=== PATIENT | male | born 1970 | race Caucasian/White ===

== ENCOUNTER 2024-08-26 21:05 | Emergency (ER) | payer MEDICAID, SELFPAY ==
--- NOTE | 2024-08-26 21:08 | ECG_ITS ---
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 Measurements Intervals [place] Rate: 78 P: 62 WV: 135 QRS: 45 QRSD: 86 T: 63 QT: 365 QTc: 418 Interpretive Statements SINUS RHYTHM No previous ECG available for comparison Electronically Signed On 08-28-2024 18:03:31 ELECTRICAL TECH/PROJECT MANAGER by Bert Posey M.D. [email or web address]
[2024-08-26 21:11] VITALS: BP 118/76; PULSE 83; RESP 18; TEMP 36.9; O2SAT 100; BMI 23.5
--- NOTE | 2024-08-26 21:30 | XRR_ITS ---
PROCEDURE INFORMATION: Exam: XR Chest Exam date and time: 08/26/2024 9:32 PM Age: 54 years old Clinical indication: Pain; Chest pressure; Additional info: Chest pain TECHNIQUE: Imaging protocol: Radiologic exam of the chest. Views: 1 view. COMPARISON: No relevant prior studies available. FINDINGS: Lungs: Unremarkable. No consolidation. Pleural spaces: Unremarkable. No pleural effusion. No pneumothorax. Heart/Mediastinum: Unremarkable. No cardiomegaly. Bones/joints: Unremarkable. XR/XR chest 1V portable [id number] IMPRESSION: No acute findings.
--- NOTE | 2024-08-26 21:31 | ED_ITS ---
HPI - Chest Pain 2 General: Chief Complaint: Chest Pain Stated Complaint: Chest Pain N/V Time Seen by Provider: 08/26/24 21:26 History of Present Illness: Patient presents to the ER with complaints of intermittent chest pain that started yesterday. This is in his left chest. It did not radiate. Did cause nausea and vomiting but no shortness of breath or diaphoresis. Patient said he had a heart attack 4 to 5 years ago [facility] but they did not perform any intervention. Patient is only on blood pressure medicine currently. Patient states he has multiple abdominal hernias and a hiatal hernia and is going to see somebody in [place] to have them repaired in the short-term future. Patient is not having any chest pain at present. Related Data Previous Rx's ?Medication ?Instructions ?Recorded metoclopramide HCl 10 mg tablet 10 mg PO Q6H PRN nause a and 08/27/24 (Reglan) vomiting #14 tabs Allergies Allergy/AdvReac Type Severity Reaction Status Date / Time Latex, Natural Rubber Allergy ALGY-Rash Verified 08/26/24 21:16 Review of Systems 2 General: Reports: 10 or more systems reviewed and unremarkable except in HPI and below Physical Exam 2 Const: COMMON NORMALS: no acute distress, average body habitus, patient oriented x3, no limitations, healthy appearing, alert and well nourished HENMT: COMMON NORMALS: normocephalic, atraumatic, hearing grossly normal bilaterally, external ears normal, Normal external nose present, moist oral mucous membranes and oropharynx normal HEAD & SCALP: normocephalic and atraumatic NOSE: Normal external nose present EXTERNAL EAR: Yes external ears normal Neck/C-Spine: COMMON NORMALS: full ROM, no lymphadenopathy, supple, no meningeal signs, no JVD and Thyroid normal THYROID: Thyroid normal Chest: COMMONS NORMALS: normal inspection of the chest and normal palpation of entire chest wall Resp: COMMON NORMALS: normal respiratory effort, No retractions, No use of accessory muscles and clear to auscultation bilaterally AUSCULTATION: clear to auscultation bilaterally Cardio: COMMON NORMALS: no JVD, regular rate, regular rhythm, S1 normal heart sound present, S2 normal heart sound present, No gallops present (Cardio), No clicks present (Cardio), No murmurs present (Cardio) and No rub (Cardio) R ATE: regular rate RHYTHM: regular rhythm HEART SOUNDS: S1 normal heart sound present and S2 normal heart sound present GI: COMMON NORMALS: Normal to inspection, nondistended, normoactive bowel sounds present, Soft to palpation, non-tender, No hepatosplenomegaly present and no masses PALPATION: Yes Soft to palpation and Yes No hepatosplenomegaly present Neuro: COMMON NORMALS: patient oriented x3 SENSORIUM/ORIENTATION: Yes alert MENINGEAL SIGNS: Yes no meningeal signs Course 2 Vital Signs: Vital signs: Vital Signs Temperature 98.4 F 08/26/24 21:11 Pulse Rate 71 08/26/24 23:00 Respiratory Rate 17 08/26/24 23:00 Blood Pressure 102/46 08/26/24 23:00 Pulse Oximetry 96 08/26/24 23:00 Oxygen Delivery Me thod Room Air 08/26/24 22:30 MDM - Chest Pain Medical Decision Making Lab work was reviewed as well as chest x-ray, serial troponins serial EKGs, all of which was essentially benign except mild elevation of white blood cell count 17.2 hemoglobin 10.3, patient was given Toradol, Zofran, and Reglan, patient said his pain was much improved as well as his nausea. Patient will be discharged home. Medical Records I reviewed the patient's medical records. Lab Data I reviewed the patient's lab results. 08/26/24 21:40 08/26/24 21:40 Radiology Impressions Chest X-Ray 08/26/24 21:30 IMPRESSION: No acute findings. Laboratory Results WBC 17.24 10^3/uL (3.29-11.43) H 08/26/24 21:40 RBC 5.59 10^6/uL (3.85-5.65) 08/26/24 21:40 Hgb 10.30 g/dL (11.27-16.99) L 08/26/24 21:40 Hct 35.3 % (37-53) L 08/26/24 21:40 MCV 63.1 fl (82-101) L 08/26/24 21:40 MCH 18.4 pg (27-33) L 08/26/24 21:40 MCHC 29.2 g/dL (30-55) L 08/26/24 21:40 RDW 22.0 % (12.1-15.1) H 08/26/24 21:40 Plt Count 629 10^3/cmm (157-399) H 08/26/24 21:40 MPV 8.4 fL (7.4-10.4) 08/26/24 21:40 Neut % (Auto) 67.3 % 08/26/24 21:40 Lymph % (Auto) 21.0 % 08/26/24 21:40 [place] % (Auto) 9.6 % 08/26/24 21:40 Eos % (Auto) 0.9 % 08/26/24 21:40 Baso % (Auto) 0.6 % 08/26/24 21:40 Neut # (Auto) 11.59 10^3/uL (1.8-7.7) H 08/26/24 21:40 Lymph # (Auto) 3.6 10^3/uL (0.8-4.8) 08/26/24 21:40 [place] # (Auto) 1.7 10^3/uL (0.2-0.9) H 08/26/24 21:40 Eos # (Auto) 0.2 10^3/uL (0.0-0.8) 08/26/24 21:40 Baso # (Auto) 0.1 10^3/uL (0.0-0.1) 08/26/24 21:40 Nucleated RBC % (auto) 0.1 % 08/26/24 21:40 Nucleated RBCs # 0.0 /100WBC 08/26/24 21:40 Sodium 136 mmol/L (136-145) 08/26/24 21:40 Potassium 4.5 mmol/L (3.5-5.1) 08/26/24 21:40 Chloride 102 mmol/L (98-107) 08/26/24 21:40 Carbon Dioxide 22 mmol/L (22-29) 08/26/24 21:40 Anion Gap 16.5 (5-19) 08/26/24 21:40 BUN 20 mg/dL (6-20) 08/26/24 21:40 Creatinine 1.3 mg/dL (0.7-1.2) H 08/26/24 21:40 GFR Calculation 58.0 mL/min (90-130) L 08/26/24 21:40 Glucose 107 mg/dL (65-115) 08/26/24 21:40 Calculated Osmolality 285 mOsm/kg (285-295) 08/26/24 21:40 Calcium 9.6 mg/dL (8.5-10.5) 08/26/24 21:40 Total Bilirubin 0.4 mg/dL (0.15-1.2) 08/26/24 21:40 AST 22 U/L (0-40) 08/26/24 21:40 ALT 15 U/L (0-41) 08/26/24 21:40 Alkaline Phosphatase 151 U/L (40-130) H 08/26/24 21:40 Troponin T Baseline 9 ng/L (0-15) 08/26/24 21:40 Troponin T 120 Minute 9.70 ng/L (0-15) 08/26/24 23:26 Delta Troponin T 0.70 ABS# (0-10) 08/26/24 23:26 Total Protein 7.3 g/dL (6.6-8.7) 08/26/24 21:40 Albumin 4.4 g/dL (3.5-5.2) 08/26/24 21:40 Globulin 2.9 g/dL (1.3-4.6) 08/26/24 21:40 All radiology interpretation(s) finalized by discharge Discharge Plan Discharge Patient Disposition: Home Clinical Impression: Chest pain Qualifiers: Chest pain type: unspecified Qualified Code(s): R07.9 - Chest pain, unspecified Nausea and vomiting Qualifiers: Vomiting type: unspecified Qualified Code(s): R11.2 - Nausea with vomiting, unspecified Condition: Stable Prescriptions: New metoclopramide HCl [Reglan] 10 mg tablet 10 mg PO Q6H PRN (Reason: nausea and vomiting) Qty: 14 0RF Discharge Orders: Discharge ED (Routine); Ordered 08/27/24 Ordered By: Luis Carlos Estrada Patient Instructions: Chest Pain (DC), Acute Nausea and Vomiting (ED) Activity Restrictions/Additional Instructions: Thank you for choosing [facility] for your healthcare needs today. Please realize that you were seen in the emergency department and that we are providing you with an emergency medical screening exam and this may not be a complete and all exclusive of all testing and/or medical workup we may need to determine your element or severity of your illness. It is very important that you follow-up as instructed with your primary care provider or specialist for the additional evaluation and to discuss your medical treatment plan. You may return to the emergency department should you have concerns or if your condition changes or worsens in any way. Print Language: Botswanan Coding Level of Care Code ED Business Services Specialist Sales for 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
[2024-08-26] MEDS: ondansetron 4 MG Tablet PO (21:44)
[2024-08-26] MEDS: ketorolac 60 mg/2 mL INJ IM (21:44)
[2024-08-26 21:48] LABS: Basophils # 0.1 10^3/uL (0.0-0.1); Basophils % 0.6 %; Eosinophils # 0.2 10^3/uL (0.0-0.8); Eosinophils % 0.9 %; Hematocrit 35.3 % (37-53); Lymphocytes # 3.6 10^3/uL (0.8-4.8); Mean Corpuscular HGB Conc 29.2 g/dL (30-55); Mean Corpuscular Hemoglobin 18.4 pg (27-33); Mean Corpuscular Volume 63.1 fl (82-101); Mean Platelet Volume 8.4 fL (7.4-10.4); Monocytes # 1.7 10^3/uL (0.2-0.9); Monocytes % 9.6 %; Neutrophils # 11.59 10^3/uL (1.8-7.7); Neutrophils % 67.3 %; Nucleated Red Blood Cells % 0.1 %; Platelet Count 629 10^3/cmm (157-399); Red Blood Count 5.59 10^6/uL (3.85-5.65); White Blood Count 17.24 10^3/uL (3.29-11.43)
[2024-08-26 22:00] VITALS: BP 129/81; PULSE 76; RESP 22; O2SAT 96
[2024-08-26 22:12] LABS: Alanine Aminotransferase 15 U/L (0-41); Albumin Level 4.4 g/dL (3.5-5.2); Alkaline Phosphatase 151 U/L (40-130); Aspartate Amino Transferase 22 U/L (0-40); Blood Urea Nitrogen 20 mg/dL (6-20); Calcium 9.6 mg/dL (8.5-10.5); Carbon Dioxide 22 mmol/L (22-29); Chloride 102 mmol/L (98-107); Creatinine Clr Calc Pharmacy 62.8745; Globulin 2.9 g/dL (1.3-4.6); Glucose 107 mg/dL (65-115); Osmolality Calculated 285 mOsm/kg (285-295); Sodium 136 mmol/L (136-145); Total Bilirubin 0.4 mg/dL (0.15-1.2); Total Protein 7.3 g/dL (6.6-8.7)
[2024-08-26 22:13] LABS: Anion Gap 16.5 (5-19); Potassium 4.5 mmol/L (3.5-5.1)
[2024-08-26 22:28] LABS: Troponin(5th) Baseline 9 ng/L (0-15)
[2024-08-26 22:30] VITALS: BP 107/54; PULSE 72; RESP 16; O2SAT 95
[2024-08-26 23:00] VITALS: BP 102/46; PULSE 71; RESP 17; O2SAT 96
[2024-08-26 23:30] VITALS: BP 97/49; PULSE 62; RESP 15; O2SAT 97
--- NOTE | 2024-08-26 23:30 | ECG_ITS ---
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 Measurements Intervals [place] Rate: 64 P: -4 VT: 134 QRS: 35 QRSD: 86 T: 16 QT: 412 QTc: 426 Interpretive Statements SINUS RHYTHM VOLTAGE CRITERIA FOR LVH [MEETS CRITERIA IN ONE OF: R(aVL), S(V1), R(V5), R(V5/V6)+S(V1)] Compared to ECG 08/26/2024 21:15:18 Left ventricular hypertrophy now present Electronically Signed On 08-28-2024 19:35:20 ELECTRONICS SPECIALIST by Bert Posey M.D. [id number] [id number]
[2024-08-26] MEDS: metoclopramide 5 mg/mL SDV 2 mL 10 MG IVP (23:37)
[2024-08-27] VITALS: BP 113/60; PULSE 62; O2SAT 97
[2024-08-27 00:25] VITALS: BP 121/64; PULSE 65; RESP 17; O2SAT 96
== END 2024-08-27 00:26 | disposition home or self-care (01) ==
PROVIDERS: Emergency Provider Emergency Medicine
DX: R07.9 Chest pain, unspecified (principal); R11.2 Nausea with vomiting, unspecified
CPT/HCPCS: 36415; 71045; 80053; 84484; 85025; 93005; 96372; 96374; 99285; J1885; J2765; Q0162

== ENCOUNTER 2024-11-26 22:38 | Emergency (ER) | payer MEDICAID, SELFPAY ==
[2024-11-26 22:40] VITALS: BP 170/97; PULSE 95; RESP 18; TEMP 36.7; O2SAT 100; BMI 21.2
[2024-11-27 01:05] LABS: Basophils # 0.2 10^3/uL (0.0-0.1); Basophils % 0.8 %; Eosinophils % 0.1 %; Hematocrit 35.7 % (37-53); Lymphocytes # 5.2 10^3/uL (0.8-4.8); Lymphocytes % 28.8 %; Mean Corpuscular HGB Conc 30.5 g/dL (30-55); Mean Corpuscular Hemoglobin 22.7 pg (27-33); Mean Corpuscular Volume 74.2 fl (82-101); Mean Platelet Volume 8.8 fL (7.4-10.4); Monocytes # 1.9 10^3/uL (0.2-0.9); Monocytes % 10.5 %; Neutrophils # 10.63 10^3/uL (1.8-7.7); Nucleated Red Blood Cells % 0 %; Platelet Count 595 10^3/cmm (157-399); Red Blood Count 4.81 10^6/uL (3.85-5.65); Red Cell Distribution Width 20.3 % (12.1-15.1); White Blood Count 18.01 10^3/uL (3.29-11.43)
[2024-11-27 01:20] LABS: Add RBC Morph Yes; Slide Review Slide Review Perform
[2024-11-27 01:21] LABS: Anion Gap 13.6 (5-19); Anisocytosis 2+; Blood Urea Nitrogen 10 mg/dL (6-20); Calcium 9.1 mg/dL (8.5-10.5); Carbon Dioxide 28 mmol/L (22-29); Chloride 100 mmol/L (98-107); Glomerular Filtration Rate 70.3 mL/min (90-130); Glucose 108 mg/dL (65-115); Lipase 55 U/L (13-60); Microcytosis 2+; Osmolality Calculated 286 mOsm/kg (285-295); Poikilocytosis 2+; Potassium 3.6 mmol/L (3.5-5.1); RBC Morph Comp No; Sodium 138 mmol/L (136-145)
[2024-11-27 01:22] LABS: Hypochromasia 1+; Pathology Refferal No
--- NOTE | 2024-11-27 01:33 | CTR_ITS ---
PROCEDURE INFORMATION: Exam: CT Abdomen And Pelvis With Contrast Exam date and time: 11/27/2024 2:03 AM Age: 54 years old Clinical indication: Nausea and vomiting; Abdominal pain; Prior surgery; Surgery date: 6+ months; Surgery type: Bowel resection; C/O epigastric pain with n/v. TECHNIQUE: Imaging protocol: Computed tomography of the abdomen and pelvis with contrast. Radiation optimization: All CT scans at this facility use at least one of these dose optimization techniques: automated exposure control; mA and/or kV adjustment per patient size (includes targeted exams where dose is matched to clinical indication); or iterative reconstruction. Contrast material: OMNI 350; Contrast volume: 100 ml; Contrast route: INTRAVENOUS (IV); COMPARISON: CR XR chest 1V portable [id number] 08/26/2024 9:32 PM RADIATION DOSE METRICS: Total DLP (mGy-cm): 338.93 FINDINGS: Lungs: Visualized lung bases are clear. Liver: The liver is unremarkable. Gallbladder and biliary ducts: Gallbladder is poorly visualized and may be absent. No biliary ductal dilation. Pancreas: The pancreas is unremarkable. Spleen: Spleen appears absent. A 2.5 cm splenule is present posterior to the stomach, suggestive of prior splenosis. Adrenal glands: The adrenal glands are unremarkable. Kidneys and ureters: Left kidney is absent. Right kidney demonstrates mild right hydronephrosis and hydroureter. No evidence of renal stones. Stomach and bowel: Mild colonic stool burden. No evidence of bowel obstruction. Postsurgical changes of bowel. Appendix: No evidence of acute appendicitis. Intraperitoneal space: No extraluminal free air. Vasculature: Mild scattered calcific atheromatous disease of the abdominal aorta and its major branches. No abdominal aortic aneurysm. Lymph nodes: No distinct pathologically enlarged lymphadenopathy. Urinary bladder: Questionable mild diffuse bladder wall thickening. Reproductive: Visualized reproductive structures are within normal limits. Bones/joints: Chronic appearing grade 1 anterolisthesis of L5 on S1. No distinct acute osseous fractures. Soft tissues: Visualized superficial soft tissues are within normal limits. CT/CT abdomen pelvis w con* [id number] IMPRESSION: 1. Questionable mild diffuse bladder wall thickening. This may be incidental or can be seen with mild cystitis. 2. Left kidney is absent. 3. Right kidney demonstrates mild right hydronephrosis and hydroureter. No evidence of renal stones. 4. Mild colonic stool burden.
--- NOTE | 2024-11-27 01:34 | ED_ITS ---
HPI - Abdominal Pain 2 General: Chief Complaint: Abdominal Pain Stated Complaint: n/v passing blood, headache no energy Time Seen by Provider: 11/27/24 01:15 History of Present Illness: Patient comes in with blood in his stool, vomiting, and abdominal pain. States for the past 7 days he has not been able to keep much down secondary to vomiting. 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 States he also has a headache today and generalized abdominal pain worse in epigastric region. States he is seeing bright red blood when he wipes over the last few days as well. States he has a history of ulcers. On physical exam his abdomen is soft, nontender. Will check labs, CT abdomen pelvis with IV contrast, treat pain with 15 mg of IV Toradol, treat nausea with 10 mg of IV Reglan, give IV fluids, and reassess. Associated Symptoms: Reports hematochezia, nausea and vomiting; Denies fever(s) Related Data Previous Rx's ?Medication ?Instructions ?Recorded metoclopramide HCl 10 mg tablet 10 mg PO Q6H PRN nause a and 08/27/24 (Reglan) vomiting #14 tabs ondansetron 4 mg disintegrating 4 mg PO Q8H PRN nausea and 11/27/24 tablet vomiting 4 days #14 tabs Allergies Allergy/AdvReac Type Severity Reaction Status Date / Time Latex, Natural Rubber Allergy ALGY-Rash Verified 08/26/24 21:16 Review of Systems 2 Const: Denies: fever(s) Eyes: Denies: change in vision ENMT: Denies: throat pain Card: Denies: chest pain Resp: Denies: dyspnea GI: Reports: abdominal pain, nausea, vomiting and hematochezia Neuro: Reports: headache(s) Physical Exam 2 Const: COMMON NORMALS: no acute distress, patient oriented x3, healthy appearing and alert HENMT: COMMON NORMALS: normocephalic and atraumatic HEAD & SCALP: n ormocephalic and atraumatic Neck/C-Spine: COMMON NORMALS: full ROM and supple Resp: COMMON NORMALS: normal respiratory effort, No retractions and No use of accessory muscles Cardio: COMMON NORMALS: regular rate and regular rhythm RATE: regular rate RHYTHM: regular rhythm GI: COMMON NORMALS: Normal to inspection, nondistended, normoactive bowel sounds present, Soft to palpation and non-tender PALPATION: Yes Soft to palpation Extremity: COMMON NORMALS: normal to inspection and full ROM Neuro: COMMON NORMALS: patient oriented x3 SENSORIUM/ORIENTATION: Yes alert Skin: COMMON NORMALS: no rashes or lesions noted and no wounds GENERAL SKIN EXAM: no rashes or lesions noted Course 2 Vital Signs: Vital signs: Vital Signs Temperature 98.1 F 11/26/24 22:40 Pulse Rate 83 11/27/24 02:23 Respiratory Rate 18 11/26/24 22:40 Blood Pressure 132/78 11/27/24 02:23 Pulse Oximetry 100 11/27/24 02:23 Oxygen Delivery Me thod Room Air 11/26/24 22:40 MDM - Abdominal Pain Medical Decision Making On reassessment I talked to the patient about his test results. His white blood cell count is elevated at 18, this is consistent with his previous lab work. His hemoglobin is 10.9 which is also consistent with his previous lab work. His CT scan shows no acute intra-abdominal pathology. He has not thrown up since he has been here in the back. He states that his headache is improving and that he has nausea is improving. Will place him on Zofran at home, and discharged with precautions to return for worsening or changing symptoms. Lab Data 11/27/24 00:49 11/27/24 00:49 Labs/Radiology: Radiology Impressions Abdomen/Pelvis CT 11/27/24 01:33 IMPRESSION: 1. Questionable mild diffuse bladder wall thickening. This may be incidental or can be seen with mild cystitis. 2. Left kidney is absent. 3. Right kidney demonstrates mild right hydronephrosis and hydroureter. No evidence of renal stones. 4. Mild colonic stool burden. Laboratory Results WBC 18.01 10^3/uL (3.29-11.43) H 11/27/24 00:49 RBC 4.81 10^6/uL (3.85-5.65) 11/27/24 00:49 Hgb 10.90 g/dL (11.27-16.99) L 11/27/24 00:49 Hct 35.7 % (37-53) L 11/27/24 00:49 MCV 74.2 fl (82-101) L 11/27/24 00:49 MCH 22.7 pg (27-33) L 11/27/24 00:49 MCHC 30.5 g/dL (30-55) 11/27/24 00:49 RDW 20.3 % (12.1-15.1) H 11/27/24 00:49 Plt Count 595 10^3/cmm (157-399) H 11/27/24 00:49 MPV 8.8 fL (7.4-10.4) 11/27/24 00:49 Neut % (Auto) 59.0 % 11/27/24 00:49 Lymph % (Auto) 28.8 % 11/27/24 00:49 [place] % (Auto) 10.5 % 11/27/24 00:49 Eos % (Auto) 0.1 % 11/27/24 00:49 Baso % (Auto) 0.8 % 11/27/24 00:49 Neut # (Auto) 10.63 10^3/uL (1.8-7.7) H 11/27/24 00:49 Lymph # (Auto) 5.2 10^3/uL (0.8-4.8) H 11/27/24 00:49 [place] # (Auto) 1.9 10^3/uL (0.2-0.9) H 11/27/24 00:49 Eos # (Auto) 0.0 10^3/uL (0.0-0.8) 11/27/24 00:49 Baso # (Auto) 0.2 10^3/uL (0.0-0.1) H 11/27/24 00:49 Nucleated RBC % (auto) 0 % 11/27/24 00:49 Nucleated RBCs # 0.0 /100WBC 11/27/24 00:49 Pathologist Review No 11/27/24 00:49 Hypochromasia 1+ H 11/27/24 00:49 Poikilocytosis 2+ H 11/27/24 00:49 Anisocytosis 2+ H 11/27/24 00:49 Microcytosis 2+ H 11/27/24 00:49 Sodium 138 mmol/L (136-145) 11/27/24 00:49 Potassium 3.6 mmol/L (3.5-5.1) 11/27/24 00:49 Chloride 100 mmol/L (98-107) 11/27/24 00:49 Carbon Dioxide 28 mmol/L (22-29) 11/27/24 00:49 Anion Gap 13.6 (5-19) 11/27/24 00:49 BUN 10 mg/dL (6-20) 11/27/24 00:49 Creatinine 1.1 mg/dL (0.7-1.2) 11/27/24 00:49 GFR Calculation 70.3 mL/min (90-130) L 11/27/24 00:49 Glucose 108 mg/dL (65-115) 11/27/24 00:49 Calculated Osmolality 286 mOsm/kg (285-295) 11/27/24 00:49 Calcium 9.1 mg/dL (8.5-10.5) 11/27/24 00:49 Lipase 55 U/L (13-60) 11/27/24 00:49 All radiology interpretation(s) finalized by discharge Discharge Plan Discharge Patient Disposition: Home Clinical Impression: Vomiting, Abdominal pain Condition: Stable Prescriptions: New ondansetron 4 mg tablet,disintegrating 4 mg PO Q8H PRN (Reason: nausea and vomiting) 4 Days Qty: 14 0RF No Action metoclopramide HCl [Reglan] 10 mg tablet 10 mg PO Q6H PRN (Reason: nausea and vomiting) Qty: 14 0RF Discharge Orders: Discharge ED (Routine); Ordered 11/27/24 Ordered By: John Green Patient Instructions: Abdominal Pain (ED), Vomiting - Adult Print Language: Mohawk Coding Level of Care Code ED Subcontract Administrator for 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
[2024-11-27] MEDS: metoclopramide 5 mg/mL SDV 2 mL 10 MG IVP (01:48)
[2024-11-27] MEDS: ketorolac 30 mg/mL INJ 15 MG IVP (01:48)
[2024-11-27] MEDS: sodium chloride 0.9% 1,000 ML 999 ML IV (01:48)
[2024-11-27] MEDS: iohexol 350 mg/mL 500 mL Btl (per mL) IV (02:04)
[2024-11-27 02:23] VITALS: BP 132/78; PULSE 83; O2SAT 100
[2024-11-27] MEDS: ondansetron 2 mg/ML SDV 2 mL 4 MG IVP (03:14)
[2024-11-27 03:23] VITALS: BP 124/74; PULSE 82; O2SAT 100
== END 2024-11-27 03:25 | disposition home or self-care (01) ==
PROVIDERS: Emergency Provider Emergency Medicine
DX: R11.10 Vomiting, unspecified (principal); R10.9 Unspecified abdominal pain
CPT/HCPCS: 36415; 74177; 80048; 83690; 85025; 96374; 96375; 99285; J1885; J2405; J2765; J7030

== ENCOUNTER 2025-04-14 13:07 | Emergency (ER) | payer SELFPAY ==
[2025-04-14 13:09] VITALS: BP 165/99; PULSE 78; RESP 18; TEMP 36.6; O2SAT 100
--- NOTE | 2025-04-14 13:26 | XR_ITS ---
WS: [email or web address] Left arm and humerus, 2 views, AP and lateral views, 04/14/2025 Clinical Data: injury, biceps tear Comparison: None. Findings: No fractures or dislocations are seen. The shaft of the humerus is intact. There are 2 radiopaque pellets in the subcutaneous tissue of the left chest. XR/[place] [id number] Impression: Negative left arm and humerus.
--- NOTE | 2025-04-14 13:27 | W.ED.EXTPRO ---
HPI - Extremity Problem General: Chief complaint: Extremity Injury, Upper Stated complaint: L bicep lump and discolored Time Seen by Provider: 04/14/25 13:16 History of Present Illness: Patient is a pleasant 55-year-old male that comes today with injury 2 weeks ago to left upper arm. He states he was reaching out to catch himself, fell, and noted a bulge in his mid to proximal humerus. He states he has ongoing bruising to this area. 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 He has not seen a physician for this before this time. He complains of localized pain in his left proximal to mid arm. Associated symptoms: Deny chest pain or fever(s) Related Data Previous Rx's ?Medication ?Instructions ?Recorded ketorolac 10 mg tablet 10 mg PO Q8H PRN pain 5 days #14 04/14/25 tabs methocarbamol 750 mg tablet 750 mg PO Q8H PRN muscle spasm #30 04/14/25 tabs Allergies Allergy/AdvReac Type Severity Reaction Status Date / Time adhesive Allergy ALGY-Rash Verified 04/14/25 13:50 Latex, Natural Rubber Allergy ALGY-Rash Verified 08/26/24 21:16 Review of Systems Const: Denies: fever(s) Eyes: Denies: change in vision ENMT: Denies: throat pain Card: Denies: chest pain or palpitations Resp: Denies: dyspnea GI: Denies: abdominal pain, nausea or vomiting Musc: Reports: extremity pain and extremity swelling; Denies: neck pain, back pain, joint pain or joint swelling Neuro: Denies: headache(s), numbness in extremities or sensory changes Physical Exam Const: COMMON NORMALS: no acute distress, average body habitus, patient oriented x3 and no limitations HENMT: COMMON NORMALS: normocephalic, atraumatic and hearing grossly normal bilaterally HEAD & SCALP: normocephalic and atraumatic Neck/C-Spine: COMMON NORMALS: full ROM, no lymphadenopathy (left axilla negative) and no JVD Lymph: LYMPHATIC: no lymphadenopathy noted Resp: COMMON NORMALS: normal respiratory effort, No retractions and clear to auscultation bilaterally AUSCULTATION: clear to auscultation bilaterally Cardio: COMMON NORMALS: no JVD, regular rate, regular rhythm, S1 normal heart sound present, S2 normal heart sound present, No gallops present (Cardio), No clicks present (Cardio), No murmurs present (Cardio), No rub (Cardio) and Peripheral pulses 2+ throughout RATE: regular rate RHYTHM: regular rhythm HEART SOUNDS: S1 normal heart sound present and S2 normal heart sound present PERIPHERAL PULSES: Peripheral pulses 2+ throughout GI: COMMON NORMALS: Normal to inspection, nondistended, normoactive bowel sounds present and Soft to palpation PALPATION: Yes Soft to palpation : COMMON NORMALS: Yes no CVA tenderness BLADDER/KIDNEY EXAM: Yes no CVA tenderness Back/Pelvis: COMMON NORMALS: no CVA tenderness Extremity: NARRATIVE EXTREMITY EXAM: Mid to proximal medial anterior fullness/bulge without induration with light blue and yellow ecchymosis anteriorly Neuro: COMMON NORMALS: patient oriented x3 Psych: COMMON NORMALS: mental status grossly normal and Normal thought process present THOUGHT PROCESS: Normal thought process present Course Vital Signs: Vital signs: Vital Signs Temperature 97.9 F 04/14/25 13:09 Pulse Rate 78 04/14/25 13:09 Respiratory Rate 18 04/14/25 13:09 Blood Pressure 165/99 04/14/25 13:09 Pulse Oximetry 100 04/14/25 13:09 Oxygen Delivery Me thod Room Air 04/14/25 13:09 MDM - Extremity (Nontraumatic) Medical Decision Making Patient is a 55-year-old male, with exploratory laparotomy 6 weeks ago through [place], however local here, and does not have a primary care physician. He was requesting referral to specific orthopedist. This orthopedist is not on-call, and this is a nonemergent issue. Will have case management provide primary care physician for his referral. Injury occurred 2 weeks ago, there are no red flags. Ecchymosis is consistent with 2 weeks ago. Patient states understanding. Medical Records I reviewed the patient's medical records. No records here Lab Data Radiology Impressions Humerus X-Ray 04/14/25 13:26 Impression: Negative left arm and humerus. XR interpretation done by ED provider, pending radiology final review Discharge Plan Discharge Patient Disposition: Home Clinical Impression: Rupture of left proximal biceps tendon Qualifiers: Encounter type: initial encounter Qualified Code(s): S46.212A - Strain of muscle, fascia and tendon of other parts of biceps, left arm, initial encounter Condition: Stable Prescriptions: New ketorolac 10 mg tablet 10 mg PO Q8H PRN (Reason: pain) 5 Days Qty: 14 0RF methocarbamol 750 mg tablet 750 mg PO Q8H PRN (Reason: muscle spasm) Qty: 30 0RF Discharge Orders: Discharge ED (Routine); Ordered 04/14/25 Ordered By: Ansley Rodriguez Discharge Diet: Usual diet Discharge Activity: Limit activity as instructed Patient Instructions: Biceps Tendon Rupture, Patient Portal & Felisha Instructions Activity Restrictions/Additional Instructions: - Do not take ibuprofen with ketorolac that was sent to the pharmacy - Ketorolac, anti-inflammatory pain medication, and methocarbamol/Robaxin, muscle relaxer were sent to your pharmacy. -Ice also helps with pain. -You can place an Hardik wrap on this to help with pain. Do not over tighten. -Case management will call you with primary care physician follow-up. Make sure your numbers updated with registration. You can then be referred to the physician of choice through your primary. - Return to ED if you have an emergency Thank you for choosing [facility] for your healthcare needs today. You have been screened and evaluated and felt safe for discharge. Health conditions do change or evolve sometimes and as such it is important that you follow up with your Primary Doctor to be re checked, 3-5 days is a general good time frame for follow up. You are always welcome to return to the ED for re assessment if your symptoms are worsening or you have new concerns Print Language: Maori Coding Level of Care Code ED Toppiece Chopper for 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
--- OUTSIDE RECORDS SUMMARY | 2025-04-14 13:43 | XMS_ITS | Clinical Summary ---
Author Organization [facility] Address [address] [place] [id number] Care Team Providers Care Treater Helper Name Role Phone Unavailable Primary Care Provider Unavailabl e Allergies Active Allergy Reactions Criticality Noted Date Comments Latex Hives Medium 02/27/2022 bandaids Medications No known medications Active Problems Problem Noted Date Diagnosed Date Acute pancreatitis 11/05/2024 Assessment & Plan (11/05/2024 6:45 PM CDT): Lipase 78 N.p.o. except for ice chips Hypokalemia 11/05/2024 Assessment & Plan (11/05/2024 6:45 PM CDT): Potassium 3.1 Potassium chloride 10 mEq IV piggyback Normal saline 20 mL of potassium per bag 100 cc an hour Recheck potassium in the morning Hyponatremia 11/05/2024 Assessment & Plan (11/05/2024 6:45 PM CDT): Sodium 129 Normal saline 100 cc an hour Recheck labs in the morning Polysubstance abuse 11/05/2024 Assessment & Plan (11/05/2024 6:45 PM CDT): Urine drug screen positive for marijuana and amphetamines Nausea with vomiting 11/05/2024 Assessment & Plan (11/05/2024 6:45 PM CDT): Zofran as needed Elevated white blood cell count 10/18/2024 Anemia 11/11/2022 Idiopathic acute pancreatiti s, unspecified complication status 11/09/2022 H. pylori infection 03/15/2022 Acute blood loss anemia 03/03/2022 Hepatitis C 03/03/2022 Methamphetamine abuse 03/03/2022 Hematemesis 03/02/2022 Hydronephrosis of right kidney 03/02/2022 Duodenal ulcer 03/02/2022 Esophagitis 03/02/2022 Assessment & Plan (11/05/2024 6:45 PM CDT): Admit for observation CT scan shows esophagitis, distal GI consultation Dr. Mata; made by the emergency room for EGD to evaluate esophagitis Protonix 80 mg daily N.p.o. after midnight Substance abuse 02/09/2022 Non-compliant patient 02/09/2022 Constipation 02/09/2022 Abdominal pain 02/09/2022 Chronic insomnia 02/02/2021 MDD (major depressive disord er), recurrent severe, without psychosis 02/02/2021 Suicidal behavior without attempted self-injury 02/01/2021 Tobacco abuse counseling 08/03/2019 Resolved Problems Problem Noted Date Diagnosed Date Resolved Date Recurrent acute pancreatitis 10/18/2024 10/19/2024 JACKLYN (acute kidney injury) 03/02/2022 Epigastric pain 02/09/2022 03/03/2022 Hypertension 02/09/2022 10/19/2024 Immunizations Immunization Administration Dates Next Due Hepatitis B, Adult/Adol 07/14/2020 Social History Tobacco Use Types Packs/Day Years Used Date Smoking Tobacco: Every Day Cigarettes Smokeless Tobacco: Never Tobacco Cessation:Ready to Q uit: Not Asked; Counseling Given: Not Answered Alcohol Use Standard Drinks/Week Comments Not Currently 0 (1 standard drink = 0.6 oz pur e alcohol) [facility] Utilities Answer Date Recorded In the past 12 months has [facility] [employer], oil, or water [employer] threatened to shut off services in your home? No 11/05/2024 Humiliation, Afraid, Rape, and Kick questionnair e Answer Date Recorded Within the last year, have y ou been afraid of your partner or ex-partner? No 11/05/2024 Within the last year, have y ou been humiliated or emotionally abused in other ways by your partner or ex-partner? No Within the last year, have y ou been kicked, hit, slapped, or otherwise physically hurt by your partner or ex-partner? No 11/05/2024 Within the last year, have y ou been raped or forced to have any kind of sexual activity by your partner or ex-partner? No 11/05/2024 Hunger Vital Sign Answer Date Recorded Within the past 12 months, y ou worried that your food would run out before you got the money to buy more. Never true 11/06/19 25 Within the past 12 months, t he food you bought just didn't last and you didn't have money to get more. Never true 11/05/2024 PRAPARE - Transportation Answer Date Re corded In the past 12 months, has l ack of transportation kept you from medical appointments or from getting medications? No 10/21 In the past 12 months, has l ack of transportation kept you from meetings, work, or from getting things needed for daily living? No 11/05/2024 Housing Stability Vital Sign Answer Brandon e Recorded In the last 12 months, was t here a time when you were not able to pay the mortgage or rent on time? No 11/05/2024 In the past 12 months, how m any times have you moved where you were living? 2 11/05/2024 At any time in the past 12 m [facility], were you homeless or living in a senior care (including now)? No 11/05/2024 Alcohol Use Answer Date Recorded Frequency of Alcohol Consumption Not on file 12/06/2023 Average Number of Drinks Not on file 024 Frequency of Binge Drinking Not on file 11/21 Alcohol Use Status Not Currently 12/06/2023 Average alcohol consumption Not on file 11/21 Sex and Gender Information Value Date Recorded Sex Assigned at Not on file Legal Sex Male 10:16 AM CDT Gender Identity Not on file Sexual Orientation Not on file Last Filed Vital Signs Vital Sign Reading Time Taken Comments Blood Pressure 139/100 11/08/2024 11:32 AM CDT Pulse 80 11/08/2024 11:32 AM CDT Temperature 36.3 C (97.4 F) 11/08/2024 11:32 AM CDT Respiratory Rate 18 11/08/2024 11:32 AM CDT Oxygen Saturation 100% 11/08/2024 11:32 AM CDT Inhaled Oxygen Concentration - - Weight 61.7 kg (136 lb) 11/05/2024 7:17 PM CDT Height 167.6 cm (5' 6 ) 11/05/2024 7:17 PM CDT Body Mass Index 21.95 11/05/2024 7:17 PM CDT Plan of Treatment Health Maintenance Due Date Last Done Comments MMR VACCINES (1 of 1 - Standard series) 02/18/1973 YEARLY WELLNESS EXAM 02/18/1975 DEPRESSION SCREENING 1984 ADULT TETANUS 02/18/1991 Pneumococcal Vaccine: Peds t o 50 & At-Risk Patients (1 of 2 - PCV) 02/18/1991 Colon Cancer Screening 02/18/2017 HEPATITIS B VACCINES (2 of 3 - 19+ 3-dose series) 08/11/2020 07/14/2020 Zoster Vaccine (Recombinant Vaccine) (1 of 2) 02/18/2022 LIPID TESTING 12/05/2023 12/04/2022, 11/09/2022, 02/02/2021 Influenza Vaccine 01/21/2025 COVID-19 Immunization ( season) 2025 HIV Screening Completed 03/02/2022 Hepatitis C Screening ages 1 8 to 79 once Completed 03/02/2022 CRC: FOBT (fecal occult blood) Discontinued 11/11/2022, 11/09/2022 HEPATITIS A VACCINES Aged Out No long er eligible based on patient's age to complete this topic HIB VACCINES Aged Out No longer eligi ble based on patient's age to complete this topic HPV VACCINES Aged Out No longer eligi ble based on patient's age to complete this topic IPV VACCINES Aged Out No longer eligi ble based on patient's age to complete this topic MENINGOCOCCAL VACCINE Aged Out No verenice soheila eligible based on patient's age to complete this topic Meningococcal B Vaccine Aged Out No l onger eligible based on patient's age to complete this topic ROTAVIRUS VACCINES Aged Out No longer eligible based on patient's age to complete this topic Medical Devices Implanted Type Area Dry Chain Puller Device Identifier Shelf Expiration Date Model / Serial / Lot Clip Replay Hemo 16mm 1169-07 Cn 117 - [id number] Implanted:Qty: 1 on 03/02/2022 by Reyna Govea MD at [facility] Closure Device 04/19/2024 117 / / [id number] Description:duodenal ulcer Procedures Procedure Name Priority Date/Time Associated Diagnosis Comments LIPID PROFILE Add-On 12/04/2022 4:46 AM CDT OCCULT BLOOD FECES, DIAGNOSTIC Routine 11/11/2022 12:05 PM CDT HIV 1 AND 2 COMBO ANTIGEN/ANTIBODY Routine 03/02/2022 6:53 AM CDT ACUTE HEPATITIS PANEL Routine 03/02/2022 6:53 AM CDT from Last 3 Months or Most Recently Relevant to Health Maintenance Results * LIPID PROFILE (12/04/2022 4:46 AM CDT) Cholesterol 147 0 - 200 mg/dL [facility] Triglycerides 103 0 - 150 mg/dL [facility] HDL 49 40 - 60 mg/dL [facility] LDL Cholesterol 79 0 - 100 mg/dL [facility] VLDL, Calc 19 5 - 40 mg/dL [facility] LDL/HDL Ratio 1.58 [facility] Blood 12/04/2022 4:46 AM CDT 12/04/2022 4:49 AM CDT Narrative [facility] - 12/04/2022 1:38 PM CDT Cholesterol Reference Ranges (U.S. Department of Health and Human Services ATP III Classifications) Desirable <200 mg/dL Borderline High 200-239 mg/dL High Risk >240 mg/dL Triglyceride Reference Ranges (U.S. Department of Health and Human Services ATP III Classifications) Normal <150 mg/dL Borderline High 150-199 mg/dL High 200-499 mg/dL Very High >500 mg/dL HDL Reference Ranges (U.S. Department of Health and Human Services ATP III Classifications) Low <40 mg/dl (major risk factor for CHD) High >60 mg/dl ('negative' risk factor for CHD) LDL Reference Ranges (U.S. Department of Health and Human Services ATP III Classifications) Optimal <100 mg/dL Near Optimal 100-129 mg/dL Borderline High 130-159 mg/dL High 160-189 mg/dL Very High >189 mg/dL Jim Marina MD CHEMISTRY ORDERABLES Final Res ult [facility] [address] [place] [address] * OCCULT BLOOD FECES, DIAGNOSTIC (11/11/2022 12:05 PM CDT) Occult Blood NEGATIVE NEGATIVE [facility] Stool (Stool) 11/11/2022 12: 05 PM CDT 11/11/2022 12:29 PM CDT us Mariya Ogden NP BODY FLUIDS AND STOOLS ORDER DONOVAN Final Result Performing Organization Address City/[facility] Co de Phone Number [facility] [address] [facility] [address] [phone] * (ABNORMAL) ACUTE HEPATITIS PANEL (03/02/2022 6:53 AM CDT) Hepatitis B Surface Antigen NONREACTIVE (NEG) NONREACTIVE (NEG) [facility] Hepatitis B Core IgM Antibody NONREACTIVE (NEG) NONREACTIVE (NEG) [facility] Hepatitis C IgG Antibody REACTIVE (POSITIVE)(A) NONREACTIVE (NEG) [facility] Comment:===REPORTABLE DISEAS E=== Hepatitis A IgM Antibody NONREACTIVE (NEG) NONREACTIVE (NEG) [facility] Hepatitis B Surface Antigen Comment SEE [facility] Comment: THIS ASSAY HAS NOT BEEN FDA CLEARED OR APPROVED FOR THE SCREENING OF BLOOD OR PLASMA DONORS. CURRENT METHODS FOR THE DETECTION OF HEP B SURFACE AG MAY NOT DETECT ALL INFECTED INDIVIDUALS. Hep B Core IgM Comment SEE [facility] Comment: THIS ASSAY HAS NOT BEEN FDA CLEARED OR APPROVED FOR THE SCREENING OF BLOOD OR PLASMA DONORS. Hep C IgG Comment SEE [facility] Comment: THIS ASSAY HAS NOT BEEN FDA CLEARED OR APPROVED FOR THE SCREENING OF BLOOD OR PLASMA DONORS. TEST PERFORMED USING [employer] Hep A IgM Comment SEE [facility] Comment: THIS ASSAY HAS NOT BEEN FDA CLEARED OR APPROVED FOR THE SCREENING OF BLOOD OR PLASMA DONORS. IN PATIENTS RECEIVING THERAPY WITH >5 MG/DAY BIOTIN, NO SAMPLE SHOULD BE TAKEN UNTIL AT LEAST 8 HRS AFTER LAST BIOTIN DOSE. Blood 03/02/2022 6:53 AM CDT 03/02/2022 7:27 AM CDT Kranthi Agee DO CHEMISTRY ORDERABLES Final Result Performing Organization Address City/[facility]/ZIP Co de Phone Number [facility] [address] [place] [address] * HIV 1 AND 2 COMBO ANTIGEN/ANTIBODY (03/02/2022 6:53 AM CDT) [facility] HIV 1 AND 2 COMBO AG/AB NONREACTIVE (NEG) NONREACTIVE (NEG) [facility] HIV COMMENT THIS ASSAY HAS NOT BEEN FDA CLEARED OR APPROVED FOR THE SCREENING OF BLOOD OR PLASMA DONORS. TEST PERFORMED USING [employer] CURRENT METHODS FOR THE DETECTION OF HIV 1 AND/OR 2 ANTIBODIES MAY NOT DETECT ALL INFECTED INDIVIDUALS. A REACTIVE RESULT DOESN'T DISTINGUISH BETWEEN HIV-1 p24 Ag, HIV-1 Ab, HIV-2 Ab, OR HIV-1 GROUP O Ab. [facility] 03/02/2022 6:53 AM CDT 03/02/2022 7:27 AM CDT Kranthi Agee DO IMMUNOLOGY ORDERABLE S Final Result Performing Organization Address [facility] Co de Phone Number [facility] [address] [id number] [phone] from Last 3 Months or Most Recently Relevant to Health Maintenance Insurance [address] [address] [place] [address] Member Subscriber Plan / Payer (Ef fective 2022-Present) Name:Brendon Tony Relation to Subscriber:Self Name:Brendon Tony Payer ID:[id number] Group ID:Not on file Type:CONTRACTED Address: [address] Member Subscriber Plan / Payer (Ef fective 2022-Present) Name:Brendon Tony Relation to Subscriber:Self Name:Brendon Tony Payer ID:[id number] (NAIC) Type:CONTRACTED Address: [place] [phone] Member Subscriber Plan / Payer (Ef fective 2022-Present) Name:Brendon Tony Relation to Subscriber:Self Name:Brendon Tony Payer ID:[id number] (NAIC) Type:CONTRACTED Address: [address] Member Subscriber Plan / Payer (Ef fective 2022-Present) Name:Brendon Tony Relation to Subscriber:Self Name:Brendon Tony Payer ID:[id number] Group ID:Not on file Type:CONTRACTED Address: [place] [address] Member Subscriber Plan / Payer (Ef fective 2022-Present) Name:Brendon Tony Relation to Subscriber:Self Name:Brendon Tony Payer ID:[id number] Group ID:Not on file Type:CONTRACTED Address: [address] [place] [id number] [facility] Member Subscriber Plan / Payer (Ef fective 2022-Present) Name:Brendon Tony Relation to Subscriber:Self Name:Brendon Tony Payer ID:[id number] Group ID:Not on file Type:CONTRACTED Address: [address] [place] [id number] Advance Directives * Full Code (Latest Code Status on File) Date Activated Date Inactivated Comments 11/05/2024 7:19 PM 11/08/2024 2:11 PM Patient does not want anyone called Question Answer Comments Medical Interventions (Patient has pulse or is b reathing): Full Support Person involved in the decision: Patient * Full Code Date Activated Date Inactivated Comments 10/18/2024 3:45 PM 10/19/2024 2:38 PM Question Answer Comments Medical Interventions (Patient has pulse or is b reathing): Full Support Person involved in the decision: Patient * Full Code Date Activated Date Inactivated Comments 11/09/2022 9:27 PM 11/11/2022 5:41 PM * Full Code Date Activated Date Inactivated Comments 03/14/2022 5:56 PM 03/15/2022 4:44 PM * Full Code Date Activated Date Inactivated Comments 03/02/2022 12:53 AM 03/03/2022 11:19 AM
--- OUTSIDE RECORDS SUMMARY | 2025-04-14 13:43 | XMS_ITS | Encounter Summary ---
Author Organization [employer] Address [address] [facility] [address] Care Team Providers Care Client Technical Support Associate Name Role Phone Unavailable Primary Care Provider Unavailabl e Encounter Details Date Type Department Care Team (Late st Contact Info) Description 04/13/2025 External Device Data [facility] ABSTRACTION Provider, Abstract NO ADDRESS ON FILE Social History Tobacco Use Types Packs/Day Years Used Date Smoking Tobacco: Every Day Cigarettes Smokeless Tobacco: Never Alcohol Use Standard Drinks/Week Comments Not Currently 0 (1 standard drink = 0.6 oz pur e alcohol) [facility] Utilities Answer Date Recorded In the past 12 months has e [employer], gas, oil, or water [employer] threatened to shut off services in your home? No 10/09/2023 Financial Resource Strain Answer Date R ecorded How hard is it for you to pa y for the very basics like food, housing, medical care, and heating? Not hard at all 10/09/2023 Food Insecurity Answer Date Recorded In the past 12 months, have you worried that your food would run out before you had money to buy more? Never true 10/09/2023 In the past 12 months, did y ou run out of food and didn't have money to buy more? Never true 10/09/2023 Transportation Needs Answer Date Record ed In the past 12 months, has l ack of transportation kept you from medical appointments or from getting medications? No 09/21 In the past 12 months, has l ack of transportation kept you from meetings, work, or from getting things needed for daily living? No 10/09/2023 Housing Stability Answer Date Recorded In the last 12 months, was t here a time when you were not able to pay the mortgage or rent on time? No 10/09/2023 Number of Times Moved in the Last Year Not on fi le 10/09/2023 Unstable Housing in the Last Year Not on file 10/09/2023 Feeling Safe Answer Date Recorded Are you in a relationship wi th someone who hurts you emotionally and/or physically? No 01/11/2025 Food Insecurity Answer Date Recorded Patient needs follow up regardin 12/03/2024 Transportation Needs Answer Date Record ed Patient needs follow up regardin 12/03/2024 Housing Stability Answer Date Recorded Social/Environmental Concerns No concerns Utility Needs Answer Date Recorded Patient needs follow up regardin 12/03/2024 Sex and Gender Information Value Date Recorded Sex Assigned at Not on file Legal Sex Male 8:41 AM CDT Gender Identity Not on file Sexual Orientation Not on file documented as of this encounter Plan of Treatment Not on file documented as of this encounter Visit Diagnoses Not on filedocumented in this encounter
--- OUTSIDE RECORDS SUMMARY | 2025-04-14 13:43 | XMS_ITS | Clinical Summary ---
Author Organization [employer] Address [address] [place] [address] Phone Care Team Providers Care Paint Sprayer Sandblaster Name Role Phone Unavailable Primary Care Provider Unavailabl e Allergies Active Allergy Reactions Criticality Noted Date Comments Adhesive Tape-Silicones Rash Low 03/26/2023 Latex Hives,Rash Medium 02/27/2022 Medications sucralfate (Carafate) 1 gram tablet Take 1 g by mouth in the morning and 1 g at noon and 1 g in the evening. Take with meals. 5 Active predniSONE (Deltasone) 20 mg tablet Take 20 mg by mouth 1 (one) time each day. 5 Active ondansetron ODT (Zofran-ODT) [address] 4 mg under the tongue every 6 (six) hours if needed. 5 Active omeprazole (PriLOSEC) [address] capsule Take 40 mg by mouth in the morning and 40 mg in the evening. 5 Active famotidine (Pepcid) 20 mg tablet Take 20 mg by mouth in the morning and 20 mg in the evening. 5 Active dicyclomine (Bentyl) 20 mg tablet Take 20 mg by mouth in the morning and 20 mg at noon and 20 mg in the evening and 20 mg before bedtime. before meals and at bedtime. 5 Active Social History Tobacco Use Types Packs/Day Years Used Date Smoking Tobacco: Every Day Cigarettes 1 48.4 Started: 11/21/1976 Smokeless Tobacco: Never Tobacco Cessation:Ready to Q uit: No; Counseling Given: Not Answered Sex and Gender Information Value Date Recorded Sex Assigned at Not on file Legal Sex Male 10:32 PM CDT Gender Identity Not on file Sexual Orientation Not on file Last Filed Vital Signs Vital Sign Reading Time Taken Comments Blood Pressure 132/91 12/09/2024 5:25 AM CDT Pulse 100 12/09/2024 5:25 AM CDT Temperature 37 C (98.6 F) 12/09/2024 5:25 AM CDT Respiratory Rate 20 12/09/2024 5:25 AM CDT Oxygen Saturation 98% 12/09/2024 5:25 AM CDT Inhaled Oxygen Concentration - - Weight 62.1 kg (137 lb) 12/08/2024 10:35 PM CDT Height 167.6 cm (5' 6 ) 12/08/2024 10:35 PM CDT Body Mass Index 22.11 12/08/2024 10:35 PM CDT Plan of Treatment Health Maintenance Due Date Last Done Comments CT Colonography 1972 FIT-DNA 1972 FIT 1972 FOBT 1972 Lipid Panel 1972 Sigmoidoscopy 1972 MMR Vaccines (1 of 1 - Stand prerna series) 02/18/1973 DTaP,Tdap,and Td Vaccines (1 - Tdap) 02/18/1979 Varicella Vaccines (1 of 2 - 13+ 2-dose series) 02/18/1985 Depression Screening 02/18/1990 Social Drivers of Health (SDoH) 02/18/1990 Hepatitis A Vaccines (1 of 2 - Risk 2-dose series) 02/18/1991 Hepatitis B Vaccines (1 of 3 - 19+ 3-dose series) 02/18/1991 Pneumococcal Vaccine: 50+ Ye ars (1 of 2 - PCV) 02/18/1991 Pneumococcal Vaccine (1 of 2 - PCV) 02/18/1991 [facility] Lung Cancer Screening Sh ared Decision Making 02/18/2022 Zoster Vaccines (1 of 2) 02/18/2022 COVID-19 Vaccine (1 - 2023-2 5 season) 2025 Influenza Vaccine (#1) 2025 Creatinine Level 12/08/2025 12/08/2024 Potassium Level 12/08/2025 12/08/2024 Colonoscopy 04/04/2033 04/04/2023 Colorectal Cancer Screening 04/04/2033 RSV Vaccines (1 - 1-dose 75+ series) 02/18/2047 HIB Vaccines Aged Out No longer eligi ble based on patient's age to complete this topic HPV Vaccines Aged Out No longer eligi ble based on patient's age to complete this topic IPV Vaccines Aged Out No longer eligi ble based on patient's age to complete this topic Meningococcal B Vaccine Aged Out No l onger eligible based on patient's age to complete this topic Meningococcal Vaccine Aged Out No verenice soheila eligible based on patient's age to complete this topic Rotavirus Vaccines Aged Out No longer eligible based on patient's age to complete this topic Procedures Procedure Name Priority Date/Time Associated Diagnosis Comments COMPREHENSIVE METABOLIC PANEL STAT 12/08/2024 10:59 PM CDT from Last 3 Months or Most Recently Relevant to Health Maintenance Results * (ABNORMAL) Comprehensive metabolic panel (12/08/2024 10:59 PM CDT) Glucose 111(H) 70 - 100 mg/dL LAB CHEMISTRY METHOD 12/08/2024 11:33 PM CDT [facility] BUN 9 9 - 20 mg/dL LAB CHEMISTRY METHOD 12/08/2024 11:33 PM CDT [facility] Creatinine 1.14 0.66 - 1.25 mg/dl LAB CHEMISTRY METHOD 12/08/2024 11:33 PM CDT [facility] BUN/Creatinine Ratio 8(L) 12 - 17 LAB CHEMISTRY METHOD 12/08/2024 11:33 PM CDT [facility] Sodium 137 135 - 145 mmol/L LAB CHEMISTRY METHOD 12/08/2024 11:33 PM CDT [facility] Potassium 3.8 3.6 - 5.0 mmol/L LAB CHEMISTRY METHOD 12/08/2024 11:33 PM CDT [facility] Chloride 109 101 - 111 mmol/L LAB CHEMISTRY METHOD 12/08/2024 11:33 PM CDT [facility] Total Carbon Dioxide 24 22 - 30 mmol/L LAB CHEMISTRY METHOD 12/08/2024 11:33 PM CDT [facility] Anion Gap 8(L) 9 - 17 mmol/L LAB CHEMISTRY METHOD 12/08/2024 11:33 PM CDT [facility] Calcium 8.8 8.2 - 10.2 mg/dL LAB CHEMISTRY METHOD 12/08/2024 11:33 PM CDT [facility] Total Protein, Serum 6.9 5.6 - 8.5 g/dL LAB CHEMISTRY METHOD 12/08/2024 11:33 PM CDT [facility] Albumin 3.3(L) 3.5 - 5.2 g/dL LAB CHEMISTRY METHOD 12/08/2024 11:33 PM CDT [facility] GLOBULIN 3.6 2.1 - 3.8 g/dL LAB CHEMISTRY METHOD 12/08/2024 11:33 PM CDT [facility] A/G Ratio 0.9(L) 1.4 - 1.7 LAB CHEMISTRY METHOD 12/08/2024 11:33 PM CDT [facility] Bilirubin, Total 0.3 0.1 - 1.3 mg/dL LAB CHEMISTRY METHOD 12/08/2024 11:33 PM CDT [facility] Alkaline Phosphatase 123(H) 45 - 117 U/L LAB CHEMISTRY METHOD 12/08/2024 11:33 PM CDT [facility] ALT (SGPT) 29 11 - 58 U/L LAB CHEMISTRY METHOD 12/08/2024 11:33 PM CDT [facility] AST (SGOT) 23 9 - 55 U/L LAB CHEMISTRY METHOD 12/08/2024 11:33 PM CDT [facility] eGFR >60 >=60 mL/min/1. 73 m2 LAB CHEMISTRY METHOD 12/08/2024 11:33 PM CDT [facility] Blood Venous blood specimen / Unknown Venipuncture / Unknown 12/08/2024 10:59 PM CDT 12/08/2024 11:03 PM CDT Chula Shaw MD LAB BLOOD ORDERABLES Fi nal Result [facility] [address] [address] from Last 3 Months or Most Recently Relevant to Health Maintenance Insurance [employer]
--- OUTSIDE RECORDS SUMMARY | 2025-04-14 13:43 | XMS_ITS | Clinical Summary ---
Author Organization [facility] Address [address] [place] [address] Phone Care Team Providers Care Pack Puller Name Role Phone Unavailable Primary Care Provider Unavailabl e Allergies Active Allergy Reactions Criticality Noted Date Comments Adhesive Tape-Silicones Rash Low 03/26/2023 Latex Rash Low 03/26/2023 Medications omeprazole (PriLOSEC) 40 mg Capsule, Delayed Release(E.C.)Ind ications:Gastroe sophageal reflux disease with esophagitis without hemorrhage TAKE 1 CAPSULE BY MOUTH TWICE DAILY 60 Capsule 3 5 Active sucralfate (CARAFATE) 1 gram tablet Take 1 Tablet (1 Gram) by mouth 3 times daily before meals. 120 Tablet 3 5 Active Additional Information Patient not taking.Reported on 12/08/2024 dicyclomine (BENTYL) 20 mg tablet Take 20 mg by mouth 4 times daily before meals and at bedtime. 5 Active predniSONE (DELTASONE) 20 mg tabletIndication s:Sore throat Take 1 Tablet (20 mg) by mouth daily. 5 Tablet 5 Active famotidine (PEPCID) 40 mg tabletIndication s:Gastroesophage al reflux disease with esophagitis without hemorrhage Take 1 Tablet (40 mg) by mouth 2 times daily. 180 Tablet 5 Active prochlorperazine maleate (COMPAZINE) 5 mg tablet Take 5 mg by mouth every 6 hours as needed. 5 Active promethazine (PHENERGAN) 25 mg tablet Take 25 mg by mouth every 8 hours as needed. 5 Active Active Problems Problem Noted Date Diagnosed Date Iron deficiency anemia 12/03/2024 Constipation, unspecified 12/02/2024 Intractable vomiting with nausea 12/02/2024 Leukocytosis (leucocytosis) 12/02/2024 Protein-calorie malnutrition, moderate s/p open right hemicolectomy 04/17/2023 for Acton n polyp 04/17/2023 HTN (hypertension), benign 08/03/2019 Overview (12/02/2024): cont BP medication the day of procedure Resolved Problems Problem Noted Date Diagnosed Date Resolved Date Other chest pain 01/11/2025 01/11/2025 Encounters Date Type Department Care Team Description 04/13/2025 External Device Data [facility] ABSTRACTION Provider, Abstract 04/12/2025 External Device Data [facility] ABSTRACTION Provider, Abstract 04/05/2025 External Device Data [facility] ABSTRACTION Provider, Abstract 02/15/2025 External Device Data [facility] ABSTRACTION Provider, Abstract 02/08/2025 External Device Data [facility] ABSTRACTION Provider, Abstract from Last 3 Months Family History Medical History Relation Name Comments Colon Cancer Neg Hx Social History Tobacco Use Types Packs/Day Years Used Date Smoking Tobacco: Every Day Cigarettes Smokeless Tobacco: Never Tobacco Cessation:Ready to Q uit: Yes; Counseling Given: Yes Alcohol Use Standard Drinks/Week Comments Not Currently 0 (1 standard drink = 0.6 oz pur e alcohol) [facility] Utilities Answer Date Recorded In the past 12 months has th e [employer], gas, oil, or water [employer] threatened to shut off services in your [...] Sign Reading Time Taken Comments Blood Pressure 136/86 01/11/2025 11:59 AM CDT Pulse 78 01/11/2025 11:59 AM CDT Temperature 36.4 C (97.5 F) 01/11/2025 11:59 AM CDT Respiratory Rate 22 01/11/2025 11:59 AM CDT Oxygen Saturation 100% 01/11/2025 11:59 AM CDT Inhaled Oxygen Concentration - - Weight 68.2 kg (150 lb 6.4 oz) 01/11/2025 4:54 A M CDT Height 167.6 cm (5' 6 ) 01/11/2025 2:03 AM CDT Body Mass Index 24.28 01/11/2025 2:03 AM CDT Plan of Treatment Health Maintenance Due Date Last Done Comments DTAP/TDAP/TD VACCINES (1 - Tdap) 02/18/1991 HEPATITIS B VACCINES (1 of 3 - 19+ 3-dose series) 02/18/1991 07/14/2020 FIT-DNA Q 3 years 02/18/2017 FIT/FOBT Q 1 year 02/18/2017 Flex Sig/CT Colonography Q 5 years 02/18/2017 ZOSTER VACCINE (1 of 2) 02/18/2022 INFLUENZA VACCINE (#1) 2025 COLORECTAL SCREENING 04/04/2033 04/04/2023, 04/04/20 Colorectal Cancer Screening 04/04/2033 Abdominal Aortic Aneurysm (A AA) Screening Completed 06/10/2024, 11/25/2022, 11/23/2022, Additional history exists Medical Devices Implanted Type Area Director Of Corporate Marketing Device Identifier Shelf Expiration Date Model / Serial / Lot Capsule [employer] Testing [facility]-0635 - [id number] Implanted:Qty: 1 on 03/23/2024 by Edgardo Salazar DO at [facility] Other N/A: 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 GIVEN [id number] 04/28/2025 [facility]-0635 / / [id number] Description:ID# [id number]; place d at 31cm Procedures Procedure Name Priority Date/Time Associated Diagnosis Comments TELEMETRY REPORT 01/28/2025 2:50 PM CDT COLONOSCOPY REPORT 04/04/2023 9: 31 AM CDT from Last 3 Months or Most Recently Relevant to Health Maintenance Results * TELEMETRY REPORT (01/28/2025 2:50 PM CDT) us Provider Scanning ECG ORDERABLES Final Result * COLONOSCOPY REPORT (04/04/2023 9:31 AM CDT) Narrative Procedure Note Edgardo Salazar DO - 04/04/2023 9:31 AM CDT [facility] GI Patient Name: Brendon Tony Procedure Date: 04/04/2023 Date of : 1970 Admit Type: Outpatient Age: 53 Attending MD: Edgardo Salazar DO, Procedure: Colonoscopy Indications: Screening for colorectal malignant neoplasm Providers: Edgardo Salazar DO Referring MD: Pooja Zhou Medicines: Propofol per Anesthesia Complications: No immediate complications. Procedure: After I obtained informed consent, the scope was passed under direct vision. Throughout the procedure, the patient's blood pressure, pulse, and oxygen saturations were monitored continuously. The Colonoscope was introduced through the anus and advanced to the cecum, identified by appendiceal orifice and ileocecal valve. The colonoscopy was performed without difficulty. The patient tolerated the procedure well. The quality of the bowel preparation was excellent. Estimated Blood Loss: Estimated blood loss: none. Findings: A 30 mm polyp was found in the ileocecal valve. The polyp was sessile over the fold. Due to looping and size of polyp this could not be removed. Colon was otherwise normal. Internal hemorrhoids were found during retroflexion. The hemorrhoids were Grade I (internal hemorrhoids that do not prolapse). Impression: - One 20 mm polyp at the ileocecal valve. - No specimens collected. Recommendation: - Patient planned for abdominal hernia repair later this month will discuss with surgery conversion to right hemicolectomy. Edgardo Salazar DO 04/04/2023 9:31:17 AM Number of Addenda: 0 Note Initiated On: 04/04/2023 8:50 AM Scope Withdrawal Time 0 hours 7 minutes 23 seconds Scope In: 9:09:09 AM Scope Out: 9:26:15 AM [id number] [place], [place] Edgardo Salazar DO GI PROCEDURE ORDERABLES Final Result from Last 3 Months or Most Recently Relevant to Health Maintenance Insurance Kamlesh [place] [id number] [employer] Medicaid [place] [id number] Advance Directives For more information, please contact: [phone] * Full Code (Latest Code Status on File) Date Activated Date Inactivated Comments 01/11/2025 3:33 AM 01/11/2025 5:07 PM * Full Code Date Activated Date Inactivated Comments 12/02/2024 10:20 PM 12/03/2024 5:12 PM * Full Code Date Activated Date Inactivated Comments 03/23/2024 1:15 PM 03/23/2024 5:09 PM * Full Code Date Activated Date Inactivated Comments 10/21/2023 11:39 AM 10/21/2023 3:42 PM * Full Code Date Activated Date Inactivated Comments 04/17/2023 4:46 PM 04/23/2023 1:11 PM
--- OUTSIDE RECORDS SUMMARY | 2025-04-14 13:43 | XMS_ITS | Encounter Summary ---
Author Organization [employer] Address [address] [facility] [address] Care Team Providers Care Operating Room Tech Name Role Phone Unavailable Primary Care Provider Unavailabl e Encounter Details Date Type Department Care Team (Late st Contact Info) Description 04/12/2025 External Device Data [facility] ABSTRACTION Provider, Abstract NO ADDRESS ON FILE Social History Tobacco Use Types Packs/Day Years Used Date Smoking Tobacco: Every Day Cigarettes Smokeless Tobacco: Never Alcohol Use Standard Drinks/Week Comments Not Currently 0 (1 standard drink = 0.6 oz pur e alcohol) [facility] Utilities Answer Date Recorded In the past 12 months has e [employer], gas, oil, or water [employer] threatened to shut off services in your [...]
--- OUTSIDE RECORDS SUMMARY | 2025-04-14 13:43 | XMS_ITS | Encounter Summary ---
Author Organization [facility] Address [address] [place] [address] Care Team Providers Care Compliance Clerk Name Role Phone Unavailable Primary Care Provider Unavailabl e Encounter Details Date Type Department Care Team (Late st Contact Info) Description 04/14/2024 Telephone [facility] Gen Spec Surg [place] [facility] [address] [place] [address] Juan R Horn MD [address] [place] [address] Social History Tobacco Use Types Packs/Day Years Used Date Smoking Tobacco: Every Day Cigarettes Smokeless Tobacco: Never Alcohol Use Standard Drinks/Week Comments Not Currently 0 (1 standard drink = 0.6 oz pur e alcohol) [facility] Utilities Answer Date Recorded In the past 12 months has e electric, gas, oil, or water [employer] threatened to shut off services in your [...] who hurts you emotionally and/or physically? No 03/23/2024 Food Insecurity Answer Date Recorded Social/Environmental Concerns No concerns Transportation Needs Answer Date Record ed Social/Environmental Concerns No concerns Housing Stability Answer Date Recorded Social/Environmental Concerns No concerns Utility Needs Answer Date Recorded Social/Environmental Concerns No concerns Sex and Gender Information Value Date Recorded Sex Assigned at Not on file Legal Sex Male 8:41 AM CDT Gender Identity Not on file Sexual Orientation Not on file documented as of this encounter Plan of Treatment Not on file documented as of this encounter Visit Diagnoses Not on filedocumented in this encounter
--- NOTE | 2025-04-15 08:59 | DCPLANNER ---
messaged vickey rowell to establish pcp
== END 2025-04-14 14:01 | disposition home or self-care (01) ==
PROVIDERS: Emergency Provider Physician Assistant
DX: S46.212A Strain of muscle, fascia and tendon of other parts of biceps, left arm, initial encounter (principal); W19.XXXA Unspecified fall, initial encounter
CPT/HCPCS: 73060; 99283

== ENCOUNTER 2025-04-26 09:31 | Outpatient (CLI) | payer MEDICAID, SELFPAY ==
[2025-04-26 10:28] LABS: Hematocrit 40.5 % (37-53); Hemoglobin 11.50 g/dL (11.27-16.99); Mean Corpuscular HGB Conc 28.4 g/dL (30-55); Mean Corpuscular Hemoglobin 20.1 pg (27-33); Mean Corpuscular Volume 70.8 fl (82-101); Nucleated Red Blood Cells % 0 %; Platelet Count 758 10^3/cmm (157-399); Red Blood Count 5.72 10^6/uL (3.85-5.65); White Blood Count 11.21 10^3/uL (3.29-11.43)
[2025-04-26 10:28] LABS: Glucose Urine UA Negative (Normal); Nitrate Urine Negative (Negative); Specific Gravity, Urine 1.024 (1.005-1.030)
[2025-04-26 10:33] LABS: Add Urine Microscopic? YES
[2025-04-26 10:55] LABS: Alanine Aminotransferase 24 U/L (0-41); Albumin Level 4.3 g/dL (3.5-5.2); Alkaline Phosphatase 137 U/L (40-130); Anion Gap 14.9 (5-19); Aspartate Amino Transferase 31 U/L (0-40); Blood Urea Nitrogen 8 mg/dL (6-20); Calcium 9.2 mg/dL (8.5-10.5); Carbon Dioxide 20 mmol/L (22-29); Chloride 108 mmol/L (98-107); Globulin 3.2 g/dL (1.3-4.6); Glucose 102 mg/dL (65-115); Osmolality Calculated 285 mOsm/kg (285-295); Potassium 4.9 mmol/L (3.5-5.1); Sodium 138 mmol/L (136-145); Total Protein 7.5 g/dL (6.6-8.7)
== END 2025-04-26 09:32 | disposition home or self-care (01) ==
LOC: LAB 09:33
PROVIDERS: PCP Nurse Practitioner; Visit Provider Orthopaedic Surgery
DX: Z01.818 Encounter for other preprocedural examination (principal)
CPT/HCPCS: 36415; 80053; 81001; 85025

== ENCOUNTER 2025-04-27 11:27 | Day surgery (SDC) | payer MEDICAID, SELFPAY ==
[2025-04-27] VITALS (14 sets, daily range): BP systolic 138–170; BP diastolic 82–108; PULSE 69–97; RESP 15–17; TEMP 36.1–36.6; O2SAT 93–99; BMI 24.3
--- NOTE | 2025-04-27 12:08 | W.PM.OPSUD ---
Surgery/Procedure H&P Update DATE OF PROCEDURE: April 27, 2025 DATE H&P PERFORMED: 04/26/25 H&P UPDATE INFORMATION: I have reviewed H&P completed within last 30 days, I have examined patient prior to procedure and No changes to prior documentation PLANNED PROCEDURE: Operation Date: 04/27/25 13:25 Proposed Procedures p proximal bicep tenodesis(Left) - George Romo MD
--- NOTE | 2025-04-27 12:52 | ANES.PREANE2 ---
Pre-Anesthetic Assessment Height/Weight: Height 5 ft 7 in Weight 155 lb O2 Del Method Room Air 04/27/25 12:16 Preop Diagnosis: Biceps rupture Operation Date: 04/27/25 13:25 Proposed Procedures p proximal bicep tenodesis(Left) - George Romo MD Was Beta Hari taken within 24 hours: N/A Was Clonidine taken within 24 hours: N/A Last intake: Intake Last Liquid Date 04/26/25 Last Liquid Time 22:30 Last Solid Date 04/26/25 Last Solid Time 22:30 Social Tobacco and No alcohol Exam alert, oriented x 3, clear to auscultation bilaterally and regular rate & rhythm Airway Submandibular: within normal limits Cervical ROM: within normal limits Mallampati: Class III Dentition: false Anesthetic Plan ASA status: 3 Anesthesia: General and Regional (specify below) Other: No prior issues with anesthesia NPO since yesterday evening History of smoking Denies any cardiac issues METs greater than 4 Labs reviewed from 05/04/2025 and acceptable for procedure Plan for general anesthesia with preoperative block Medications/Allergies Home Medications ?Medication ?Instructions ?Recorded ?Confirmed ?Last Taken ?Type methocarbamol 750 mg tablet 750 mg PO Q8H PRN muscle spasm #30 04/14/25 04/26/25 04/26/25 Rx tabs amoxicillin 500 mg capsule 500 mg PO BID #20 caps 04/20/25 04/26/25 04/26/25 Rx naproxen 375 mg tablet 375 mg PO BID PRN pain #60 tabs 04/20/25 04/26/25 04/26/25 Rx Allergies Allergy/AdvReac Type Severity Reaction Status Date / Time adhesive Allergy ALGY-Rash Verified 04/26/25 14:08 Latex, Natural Rubber Allergy ALGY-Rash Verified 04/26/25 14:08 Current Medications Generic Name Dose Route Start Last Admin Trade Name Freq PRN Reason Stop Dose Admin Sodium Chloride 1,000 mls @ 30 mls/hr 04/27/25 12:00 04/27/25 12:42 Sodium Chloride 0.9% IV 04/28/25 11:59 30 mls/hr .Q24H RAVI Administration PFSH Anesthesia Surgical History Hx of splenectomy History of hernia repair Hx laparoscopic cholecystectomy Hx of brain surgery Social History Smoking and tobacco/nicotine status: current every day tobacco/nicotine user
--- NOTE | 2025-04-27 12:53 | ANES.PROC ---
Anesthesia Procedures Procedure/Date: 04/27/25 Nerve Block ^: Nerve Block 1: Main Anesthesia: other (100 mcg fentanyl and 2 mg Versed) Time Out Performed: Yes Consent: requested by attending/covering physician and from patient Laterality: Left Nerve block location: interscalene Anesthesia monitors applied: pulse oximetry, EKG, BP cuff and oxygen Nerve block position: supine Anesthetic Used: ropivicaine 0.5% Amount of anesthesia used (mL): 30 Ultrasound used to: recognize landmarks Nerve Stimulator Used?: Yes Interscalene/Femoral BLK: other needle (pjunk 4inch) Injection: neg aspiration of heme Patient Tolerated Procedure: well Complications: none Additional Comments: Decadron 4 mg added to block
[2025-04-27] MEDS: ceFAZolin 2,000 mg SDV 2000 MG IVP (13:20)
--- NOTE | 2025-04-27 13:26 | SUR.PREOP ---
LEFT INTRASCALENE NERVE BLOCK PERFORMED BY DOCTOR NAQVI USING 0.5% ROPIVACAINE 30ml, WITH DECADRON 4mg. PT ON PAYMENT REP AND PULSE OX. PT TOLERATED PROCEDURE WELL.
--- NOTE | 2025-04-27 14:36 | P.OP_ITS ---
Operative Report Date of procedure: April 27, 2025 Surgeon: George Romo MD Procedure: Preoperative diagnosis: Ruptured proximal biceps tendon left shoulder Postoperative diagnosis: Same Procedure: Open repair of biceps tendon rupture i.e. biceps tenodesis of the left Surgeon: George Romo MD Environmental Protection Economist: MONIQUE Keys's assistance was necessary for positioning the patient, assistance during the procedure, wound closure, brace placement Anesthesia: General With preoperative scalene block EBL: 20 cc Indications: Brendon is a 55-year-old white male approximately 2 weeks ago attempted to lift a heavy option felt a snap or a pop in his shoulder had deformity of his biceps musculature. He was seen at [facility] here in [place] was diagnosed with proximal biceps tendon rupture of the left arm. He wa s referred to the orthopedic clinics however the referral did not come through u April. The time patient was seen and is felt patient could benefit from repair of his biceps musculature and this needed to be done urgently rather than waiting for later date as it had already been 2 weeks. It had retracted all the way down to mid humerus by now. Therefore patient was offered a open biceps tendon repair. All risk benefits treatment alternatives were discussed with him and he is agreeable to this at this time. Procedure: After obtaining consent patient had preoperative scalene block administered in preop holding area. Patient was then taken to the operating room placed in the upper table supine position general anesthetic administered. Once good anesthesia was achieved patient was placed up in a seated position and left shoulder and arm were prepped and draped usual fashion. After surgical timeout standard anterior approach to the shoulder was made and angled line from the coracoid process to just lateral to actually fold. Sharp dissect taken on down to subcutaneous tissue electrocautery used hemostasis. Metzenbaum scissors were used to open up the deep fascia underneath the subcutaneous fat and by digital palpation the border between the pectoralis major and deltoid were identified. Deltoid was retracted superior laterally exposing the anterior aspect of the humerus and bicipital groove. Bicipital groove is open from inferior and there was found to be empty. Digital dissection down posterior to the pectoralis major was done attempting to identify the stump of the biceps tendon. With deep reach I can feel just the very tip of it. Attempts are made to try milk the muscle belly of the biceps to bring the tendon up however this is unsuccessful. At this point an anterior incision was made directly over the main portion of the biceps musculature. Once down through subcutaneous tissue blunt dissection of the digit then was able to identify the tendon stump of the biceps. This is grabbed with Allis clamps and brought out through the mid arm incision. Scar tissue was freed from the muscle belly to allow to be more mobile. A suture of FiberWire was placed through the end of this and then a clamp was sent down along the bicipital groove underneath the pectoralis major out the anterior distal incision to grab the suture ends and then these were drawn up and pulled on traction to bring the tendon back up into position on the anterior aspect of the proximal humerus. He could not be brought all the way up to the bicipital groove in the humeral head but just below there. Therefore at this time a drill hole was placed and a 2.9 juggernaut double-armed anchor was placed there. Subsequently with a weave stitch of both anchors was placed to the proximal portion of the biceps tendon while it was under traction to bring it as far up as possible as well as with the arm hyperflexed. These were sutured down in place. Once sutured back to the anterior humerus arm was put out till a little bit more than 90 degrees flexion and good fixation was achieved. Wounds were then washed closed nonsterile irrigation. Subcutaneously reapproximated 0 Vicryl interrupted sutures. Subcutaneous tissue reapproximated 3-0 Monocryl suture and then 3-0 Prolene was used to close the skin wound. Wounds were then dressed with Xeroform gauze and sterile Silverlon dressings. Patient was then placed in a locked hinged elbow brace locked at 90 degrees of flexion. Patient was then put in an arm sling awakened and transferred to cover room in stable condition
[2025-04-27] MEDS: fentaNYL 50 mcg/mL INJ 2mL IVP (14:50)
[2025-04-27] MEDS: hyDRALAzine 20 mg/mL INJ 1 mL (15:13)
[2025-04-27] MEDS: ondansetron 2 mg/ML SDV 2 mL 4 MG IVP (15:30)
== END 2025-04-27 16:35 | disposition home or self-care (01) ==
PROVIDERS: PCP Nurse Practitioner; Visit Provider Orthopaedic Surgery
PROC: (CPT 29828; principal; 2025-04-27 13:15)
DX: S46.212A Strain of muscle, fascia and tendon of other parts of biceps, left arm, initial encounter (principal); X58.XXXA Exposure to other specified factors, initial encounter; F17.200 Nicotine dependence, unspecified, uncomplicated
CPT/HCPCS: 23430; C1713; J0360; J0690; J1100; J2405; J2704; J2710; J3010; J3490; J7030; J9999; L3762

== ENCOUNTER 2025-04-28 09:59 | Emergency (ER) | payer MEDICAID, SELFPAY ==
[2025-04-28 10:05] VITALS: BP 145/90; PULSE 83; RESP 20; TEMP 36.5; O2SAT 100
--- OUTSIDE RECORDS SUMMARY | 2025-04-28 10:08 | XMS_ITS | Clinical Summary ---
Author Organization [facility] Address [address] [place] [address] Phone Care Team Providers Care Turbine Mechanic Name Role Phone Unavailable Primary Care Provider [...] Vaccine (1 of 2 - PCV) 02/18/1991 [facility] Decision Making [...] LAB CHEMISTRY METHOD 12/08/2024 11:33 PM CDT [facility] BUN 9 9 - 20 mg/dL LAB CHEMISTRY METHOD 12/08/2024 11:33 PM CDT [facility] Creatinine 1.14 0.66 - 1.25 mg/dl LAB CHEMISTRY METHOD 12/08/2024 11:33 PM CDT [facility] BUN/Creatinine Ratio 8(L) 12 - 17 LAB CHEMISTRY METHOD 12/08/2024 11:33 PM CDT [facility] Sodium 137 135 - 145 mmol/L LAB CHEMISTRY METHOD 12/08/2024 11:33 PM CDT [facility] Potassium 3.8 3.6 - 5.0 mmol/L LAB CHEMISTRY METHOD 12/08/2024 11:33 PM CDT [facility] Chloride 109 101 - 111 mmol/L LAB CHEMISTRY METHOD 12/08/2024 11:33 PM CDT [facility] Total Carbon Dioxide 24 22 - 30 mmol/L LAB CHEMISTRY METHOD 12/08/2024 11:33 PM CDT [facility] Anion Gap 8(L) 9 - 17 mmol/L LAB CHEMISTRY METHOD 12/08/2024 11:33 PM CDT [facility] Calcium 8.8 8.2 - 10.2 mg/dL LAB CHEMISTRY METHOD 12/08/2024 11:33 PM CDT [facility] Total Protein, Serum 6.9 5.6 [...] LAB CHEMISTRY METHOD 12/08/2024 11:33 PM CDT [facility] AST (SGOT) 23 9 - [...] Fi nal Result [facility] [address] [address] from Last 3 Months or Most Recently Relevant to Health Maintenance Insurance [employer] MEDICAID
--- OUTSIDE RECORDS SUMMARY | 2025-04-28 10:08 | XMS_ITS | Clinical Summary ---
Author Organization [facility] de Address [address] [place] [address] Phone Care Team Providers Care Java Lead Engineer Name Role Phone Unavailable Primary Care Provider [...] moderate s/p open right hemicolectomy 04/17/2023 for Pilot n polyp 04/17/2023 HTN (hypertension), benign 08/03/2019 [...] drink = 0.6 oz pur e alcohol) [facility] Utilities Answer Date Recorded In the past 12 months has th e [employer], gas, oil, or water [employer] threatened to shut off services in your [...] history exists Medical Devices Implanted Type Area Residential Assistant Device Identifier Shelf Expiration Date Model / Serial / Lot Capsule Clifford Ph Testing [facility]-0635 - [id number] Implanted:Qty: 1 on 03/23/2024 by Edgardo Salazar DO at [facility] Other N/A: 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 GIVEN [id number] 04/28/2025 [facility] / / [id number] Description:ID# [id number]; place d at 31cm Procedures [...] Salazar DO - 04/04/2023 9:31 AM CDT [facility] GI Patient Name: Brendon Tony Procedure Date: [...] Scope Out: 9:26:15 AM [address] [place], [place] Edgardo Salazar DO GI PROCEDURE ORDERABLES Final Result from Last 3 Months or Most Recently Relevant to Health Maintenance Insurance Kamlesh [place]DR[place]PER [id number] RX [employer] Medicaid [place] [id number] Advance Directives For more information, please contact: [phone] * Full Code (Latest Code Status on [...]
--- OUTSIDE RECORDS SUMMARY | 2025-04-28 10:08 | XMS_ITS | Encounter Summary ---
Author Organization [facility] Address [address] [place] [address] Care Team Providers Care Food Safety Manager Name Role Phone Unavailable Primary Care Provider Unavailabl e Reason for Visit * Reason Onset Date Comments OTHER 04/14/2024 Encounter Details Date Type Department Care Team (Late st Contact Info) Description 04/14/2024 Telephone [facility] Gen Spec Surg [facility] [address] [place] [address] Juan R Horn MD [address] [facility] [address] [place] [address] OTHER Social History Tobacco Use Types Packs/Day Years Used Date Smoking Tobacco: Every Day Cigarettes Smokeless Tobacco: Never Alcohol Use Standard Drinks/Week Comments Not Currently 0 (1 standard drink = 0.6 oz pur e alcohol) [facility] Utilities Answer Date Recorded In the past 12 months has e electric, gas, oil, or water company threatened to shut off services in your [...]
--- OUTSIDE RECORDS SUMMARY | 2025-04-28 10:08 | XMS_ITS | Clinical Summary ---
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 No 11/05/2024 Alcohol Use Answer [...] this topic Medical Devices Implanted Type Area System Administration Manager Device Identifier Shelf Expiration Date Model / Serial / Lot Clip Replay Hemo 16mm 1169-07 Cn 117 - [id number] Implanted:Qty: 1 on 03/02/2022 by Reyna Govea MD at [facility] Closure Device 04/19/2024 117 / / [id number] Description:duodenal ulcer Procedures Procedure Name Priority Date/Time [...] CDT) Cholesterol 147 0 - 200 mg/dL [facility] Triglycerides 103 0 - 150 mg/dL [facility] HDL 49 40 - 60 mg/dL [facility] LDL Cholesterol 79 0 - 100 mg/dL [facility] VLDL, Calc 19 5 - 40 mg/dL [facility] LDL/HDL Ratio 1.58 [facility] Blood 12/04/2022 4:46 AM CDT 12/04/2022 4:49 AM CDT Narrative [facility] - 12/04/2022 1:38 PM CDT [...] Marina MD CHEMISTRY ORDERABLES Final Res ult [facility] [address] [place] [address] * OCCULT BLOOD FECES, DIAGNOSTIC (11/11/2022 12:05 PM CDT) Occult Blood NEGATIVE NEGATIVE [facility] Stool STOOL / Unknown 11/11/2022 1 2:05 PM CDT 11/11/2022 12:29 PM CDT Mariya Ogden NP BODY FLUIDS AND STOOLS ORDER DONOVAN Final Result Performing Organization Address [facility] Co de Phone Number [facility] [address] [facility] [address] [phone] * (ABNORMAL) ACUTE HEPATITIS PANEL (03/02/2022 6:53 AM CDT) Hepatitis B Surface Antigen NONREACTIVE (NEG) NONREACTIVE (NEG) [facility] Hepatitis B Core IgM Antibody NONREACTIVE (NEG) NONREACTIVE (NEG) [facility] Hepatitis C IgG Antibody REACTIVE (POSITIVE)(A) NONREACTIVE (NEG) [facility] Comment:===REPORTABLE DISEAS E=== Hepatitis A IgM Antibody NONREACTIVE (NEG) NONREACTIVE (NEG) [facility] Hepatitis B Surface Antigen Comment SEE [facility] Comment: THIS ASSAY HAS NOT BEEN FDA CLEARED OR APPROVED FOR THE SCREENING OF BLOOD OR PLASMA DONORS. CURRENT METHODS FOR THE DETECTION OF HEP B SURFACE AG MAY NOT DETECT ALL INFECTED INDIVIDUALS. Hep B Core IgM Comment SEE [facility] Comment: THIS ASSAY HAS NOT BEEN FDA CLEARED OR APPROVED FOR THE SCREENING OF BLOOD OR PLASMA DONORS. Hep C IgG Comment SEE [facility] Comment: THIS ASSAY HAS NOT BEEN FDA CLEARED OR APPROVED FOR THE SCREENING OF BLOOD OR PLASMA DONORS. TEST PERFORMED USING [employer] Hep A IgM Comment SEE [facility] Comment: THIS ASSAY HAS NOT BEEN FDA CLEARED OR APPROVED FOR THE SCREENING OF BLOOD OR PLASMA DONORS. IN PATIENTS RECEIVING THERAPY WITH >5 MG/DAY BIOTIN, NO SAMPLE SHOULD BE TAKEN UNTIL AT LEAST 8 HRS AFTER LAST BIOTIN DOSE. Blood 03/02/2022 6:53 AM CDT 03/02/2022 7:27 AM CDT Kranthi Agee DO CHEMISTRY ORDERABLES Final Result Performing Organization Address City/[facility]/ZIP Co de Phone Number [facility] [address] [place] [address] * HIV 1 AND 2 COMBO ANTIGEN/ANTIBODY (03/02/2022 6:53 AM CDT) [facility] HIV 1 AND 2 COMBO AG/AB NONREACTIVE (NEG) NONREACTIVE (NEG) [facility] HIV COMMENT THIS ASSAY HAS NOT BEEN FDA CLEARED OR APPROVED FOR THE SCREENING OF BLOOD OR PLASMA DONORS. TEST PERFORMED USING [employer] CURRENT METHODS FOR THE DETECTION OF HIV 1 AND/OR 2 ANTIBODIES MAY NOT DETECT ALL INFECTED INDIVIDUALS. A REACTIVE RESULT DOESN'T DISTINGUISH BETWEEN HIV-1 p24 Ag, HIV-1 Ab, HIV-2 Ab, OR HIV-1 GROUP O Ab. [facility] 03/02/2022 6:53 AM CDT 03/02/2022 7:27 AM CDT Kranthi Agee DO IMMUNOLOGY ORDERABLE S Final Result Performing Organization Address [facility] Co de Phone Number [facility] [address] [id number] [phone] from Last 3 Months or Most Recently Relevant to Health Maintenance [place] [address] [place] [address] Member Subscriber Plan / Payer (Ef fective 2022-Present) Name:Brendon Tony Relation to Subscriber:Self Name:Brendon Tony Payer ID:[id number] Group ID:Not on file Type:CONTRACTED Address: [place] [address] [facility] Member Subscriber Plan / Payer (Ef fective 2022-Present) Name:Brendon Tony Relation to Subscriber:Self Name:Brendon Tony Payer ID:[id number] (NAIC) Type:CONTRACTED Address: [place] [id number] Member Subscriber Plan / Payer (Ef fective 2022-Present) Name:Brendon Tony Relation to Subscriber:Self Name:Brendon Tony Payer ID:[id number] (NAIC) Type:CONTRACTED Address: [address] Member Subscriber Plan / Payer (Ef fective 2022-Present) Name:Brendon Tony Relation to Subscriber:Self Name:Brendon Tony Payer ID:[id number] Group ID:Not on file Type:CONTRACTED Address: [place] [address] Member Subscriber Plan / Payer (Ef fective 2022-Present) Name:Brendon Tony Relation to Subscriber:Self Name:Brendon Tony Payer ID:[id number] Group ID:Not on file Type:CONTRACTED Address: [address] [place] [id number] [facility] Member Subscriber Plan / Payer (Ef fective 2022-Present) Name:Brendon Tony Relation to Subscriber:Self Name:Brendon Tony Payer ID:[id number] Group ID:Not on file Type:CONTRACTED Address: [address] [place] [address] Advance Directives * Full Code (Latest Code [...]
[2025-04-28] MEDS: morphine 4 mg/mL SDV 1 mL IM ×2 (10:31→11:26)
--- NOTE | 2025-04-28 11:36 | ED_ITS ---
HPI - Extremity Problem General: Chief complaint: Extremity Injury, Upper Stated complaint: Post surgery 04/27 L arm hurts swelling Time Seen by Provider: 04/28/25 10:01 History of Present Illness: 55-year-old male past medical history si gnificant for recent biceps tendon repair yesterday by Dr. Romo of orthopedic surgery presenting to emergency department today with left arm swelling and pain, reports that he feels that the circulation is being cut off to his arm from the hinged arm brace he was placed in. no numbness to arm. Related Data Previous Rx's ?Medication ?Instructions ?Recorded methocarbamol 750 mg tablet 750 mg PO Q8H PRN muscle s pasm #30 04/14/25 tabs amoxicillin 500 mg capsule 500 mg PO BID #20 caps 03/24 03/17 naproxen 375 mg tablet 375 mg PO BID PRN pain #60 t abs 04/20/25 hydrocodone 5 mg-acetaminophen 325 1 tab PO Q6H PRN pa in #30 tabs 04/27/25 mg tablet Allergies Allergy/AdvReac Type Severity Reaction Status Date / Time adhesive Allergy ALGY-Rash Verified 04/26/25 14:08 Latex, Natural Rubber Allergy ALGY-Rash Verified 04/26/25 14:08 [facility] ED PFSH: Surgical History Hx of splenectomy History of hernia repair Hx laparoscopic cholecystectomy Hx of brain surgery Social History Smoking and tobacco/nicotine status: current every day tobacco/nicotine user Physical Exam Narrative: EXAM NARRATIVE: Gen: A&Ox4, no acute distress, nontoxic appearing HEENT: Normocephalic, atraumatic, no scleral icterus, external ears normal, moist mucous membranes Neck: Supple, full range of motion, no observable masses Lungs: No Respiratory distress, Lungs clear to auscultation bilaterally no rales, rhonchi, wheezing CV: Regular rate and rhythm, no murmur, no pitting edema to lower extremities bilaterally Abdomen: Soft, nondistended, nontender to palpation MSK: Patient with surgical incision with overlying bandage to the left anterior shoulder region, there is a hinged arm brace in place, there is significant edema to the left upper extremity, there is normal radial pulses and normal brachial pulse to exam, the hinged arm brace appears very tight and the superiormost attachment point, sensation intact to touch to median ulnar and radial distributions of the distal left upper extremity Skin: No rashes, petechiae, lesions. Normal color per patient. Neuro: Alert and oriented, no slurred speech, sensation and strength grossly intact all 4 extremities Psych: Appropriate for situation. Course Vital Signs: Vital signs: Vital Signs Temperature 97.7 F 04/28/25 10:05 Pulse Rate 83 04/28/25 10:05 Respiratory Rate 20 H 04/28/25 10:05 Blood Pressure 145/90 04/28/25 10:05 Pulse Oximetry 100 04/28/25 10:05 Oxygen Delivery Me thod Room Air 04/28/25 10:05 MDM - Extremity (Nontraumatic) Medical Decision Making 55-year-old male presenting with postop left upper extremity pain and swelling 1 day after surgery for biceps tendon repair, patient has intact perfusion of the distal arm and intact pulses, the hinged arm brace does appear very tight secondary to edema on the upper arm region, I did discuss with Dr. Romo of orthopedic surgery regarding this and he was okay with the brace being slightly loosened to allow for the edema but did not want it removed given any flexion at the elbow would put the patient at high risk for postoperative rupture of the tendon repair. At this time given he is only 1 day postop I have a very low concern for DVT of the affected extremity and do not think ultrasound imaging is warranted at this time, recommend pain control, loosening, elevation of the arm to reduce swelling, outpatient Ortho follow-up. No radiology studies performed this visit Discharge Plan Discharge Patient Disposition: Home Clinical Impression: Post-operative pain Condition: Stable Prescriptions: No Action amoxicillin 500 mg capsule 500 mg PO BID Qty: 20 0RF naproxen 375 mg tablet 375 mg PO BID PRN (Reason: pain) Qty: 60 0RF methocarbamol 750 mg tablet 750 mg PO Q8H PRN (Reason: muscle spasm) Qty: 30 0RF hydrocodone-acetaminophen 5-325 mg tablet 1 tab PO Q6H PRN (Reason: pain) Qty: 30 0RF Discharge Orders: Discharge ED (Routine); Ordered 04/28/25 Ordered By: Octavio Tony Referrals: Tori Musa FNP [Primary Care Provider, Nurse Practitioner] George Romo MD [Physician, Orthopedics] Patient Instructions: Opioid Safety, Pain Management, Patient Portal & Felisha Instructions Print Language: Lithuanian Coding Level of Care Code ED 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
== END 2025-04-28 12:13 | disposition home or self-care (01) ==
PROVIDERS: Emergency Provider Student in an Organized Health Care Education/Training Program; PCP Nurse Practitioner
DX: G89.18 Other acute postprocedural pain (principal); Z72.0 Tobacco use
CPT/HCPCS: 96372; 99284; J1885; J2270

== ENCOUNTER 2025-04-29 00:55 | Emergency (ER) | payer MEDICAID, SELFPAY ==
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
--- OUTSIDE RECORDS SUMMARY | 2025-04-29 01:01 | XMS_ITS | Encounter Summary ---
Author Organization [facility] Address [address] [place] [address] Care Team Providers Care Imaging Scheduler Name Role Phone Unavailable Primary Care Provider Unavailabl e Reason for Visit * Reason Onset Date Comments OTHER 04/14/2024 Encounter Details Date Type Department Care Team (Late st Contact Info) Description 04/14/2024 Telephone [facility] Gen Spec Surg [facility] [address] [place] [address] Juan R Horn MD [address] [facility] [address] [place] [address] OTHER Social History Tobacco Use Types Packs/Day Years Used Date Smoking Tobacco: Every Day Cigarettes Smokeless Tobacco: Never Alcohol Use Standard Drinks/Week Comments Not Currently 0 (1 standard drink = 0.6 oz pur e alcohol) [facility] Utilities Answer Date Recorded In the [...]
--- OUTSIDE RECORDS SUMMARY | 2025-04-29 01:01 | XMS_ITS | Clinical Summary ---
Author Organization [facility] Address [address] [place] [id number] Care Team Providers Care Damper Maker Name Role Phone Unavailable Primary Care Provider [...] drink = 0.6 oz pur e alcohol) [facility] Utilities Answer Date Recorded In the past [address] [facility] [employer], oil, or water [employer] threatened to shut off services in your [...] any time in the past 12 m [facility], were you homeless or living in a jail (including now)? No 11/05/2024 Alcohol Use Answer [...] this topic Medical Devices Implanted Type Area Pie Filling Mixer Device Identifier Shelf Expiration Date Model / Serial / Lot Clip Replay Hemo 16mm 1169-07 Cn 117 - [id number] Implanted:Qty: 1 on 03/02/2022 by Reyna Govea MD at [facility] Closure Device 04/19/2024 117 / / [id number] Description:duodenal ulcer Procedures Procedure Name Priority Date/Time [...] CDT) Cholesterol 147 0 - 200 mg/dL [facility] Triglycerides 103 0 - 150 mg/dL [facility] HDL 49 40 - 60 mg/dL [facility] LDL Cholesterol 79 0 - 100 mg/dL [facility] VLDL, Calc 19 5 - 40 mg/dL [facility] LDL/HDL Ratio 1.58 [facility] Blood 12/04/2022 4:46 AM CDT 12/04/2022 4:49 AM CDT Narrative [facility] - 12/04/2022 1:38 PM [...] Marina MD CHEMISTRY ORDERABLES Final Res ult [facility] [address] [place] [address] * OCCULT BLOOD FECES, DIAGNOSTIC (11/11/2022 12:05 PM CDT) Occult Blood NEGATIVE NEGATIVE [facility] Stool STOOL / Unknown 11/11/2022 1 2:05 PM CDT 11/11/2022 12:29 PM CDT Mariya Ogden NP BODY FLUIDS AND STOOLS ORDER DONOVAN Final Result Performing Organization Address City/[facility] Co de Phone Number [facility] [address] [facility] [address] [phone] * (ABNORMAL) ACUTE HEPATITIS PANEL (03/02/2022 6:53 AM CDT) Hepatitis B Surface Antigen NONREACTIVE (NEG) NONREACTIVE (NEG) [facility] Hepatitis B Core IgM Antibody NONREACTIVE (NEG) NONREACTIVE (NEG) [facility] Hepatitis C IgG Antibody REACTIVE (POSITIVE)(A) NONREACTIVE (NEG) [facility] Comment:===REPORTABLE DISEAS E=== Hepatitis A IgM Antibody NONREACTIVE (NEG) NONREACTIVE (NEG) [facility] Hepatitis B Surface Antigen Comment SEE [facility] Comment: THIS ASSAY HAS NOT BEEN FDA CLEARED OR APPROVED FOR THE SCREENING OF BLOOD OR PLASMA DONORS. CURRENT METHODS FOR THE DETECTION OF HEP B SURFACE AG MAY NOT DETECT ALL INFECTED INDIVIDUALS. Hep B Core IgM Comment SEE [facility] Comment: THIS ASSAY HAS NOT BEEN FDA CLEARED OR APPROVED FOR THE SCREENING OF BLOOD OR PLASMA DONORS. Hep C IgG Comment SEE [facility] Comment: THIS ASSAY HAS NOT BEEN FDA CLEARED OR APPROVED FOR THE SCREENING OF BLOOD OR PLASMA DONORS. TEST PERFORMED USING [employer] Hep A IgM Comment SEE [facility] Comment: THIS ASSAY HAS NOT BEEN FDA CLEARED OR APPROVED FOR THE SCREENING OF BLOOD OR PLASMA DONORS. IN PATIENTS RECEIVING THERAPY WITH >5 MG/DAY BIOTIN, NO SAMPLE SHOULD BE TAKEN UNTIL AT LEAST 8 HRS AFTER LAST BIOTIN DOSE. Blood 03/02/2022 6:53 AM CDT 03/02/2022 7:27 AM CDT Kranthi Agee DO CHEMISTRY ORDERABLES Final Result Performing Organization Address City/[facility]/ZIP Co de Phone Number [facility] [address] [place] [address] * HIV 1 AND 2 COMBO ANTIGEN/ANTIBODY (03/02/2022 6:53 AM CDT) [facility] HIV 1 AND 2 COMBO AG/AB NONREACTIVE (NEG) NONREACTIVE (NEG) [facility] HIV COMMENT THIS ASSAY HAS NOT BEEN FDA CLEARED OR APPROVED FOR THE SCREENING OF BLOOD OR PLASMA DONORS. TEST PERFORMED USING [facility] [employer]CHN[employer] CURRENT METHODS FOR THE DETECTION OF HIV 1 AND/OR 2 ANTIBODIES MAY NOT DETECT ALL INFECTED INDIVIDUALS. A REACTIVE RESULT DOESN'T DISTINGUISH BETWEEN HIV-1 p24 Ag, HIV-1 Ab, HIV-2 Ab, OR HIV-1 GROUP O Ab. [facility] 03/02/2022 6:53 AM CDT 03/02/2022 7:27 AM CDT Kranthi Agee DO IMMUNOLOGY ORDERABLE S Final Result Performing Organization Address [facility] Co de Phone Number [facility] [address] [id number] [phone] from Last 3 Months or Most Recently Relevant to Health Maintenance [place] [address] [address] Member Subscriber Plan / Payer (Ef fective 2022-Present) Name:Brendon Tony Relation to Subscriber:Self Name:Brendon Tony Payer ID:[id number] Group ID:Not on file Type:CONTRACTED Address: [place] [address] [facility] Member Subscriber Plan / Payer (Ef fective 2022-Present) Name:Brendon Tony Relation to Subscriber:Self Name:Brendon Tony Payer ID:[id number] (NAIC) Type:CONTRACTED Address: [place] [id number] Member Subscriber Plan / Payer (Ef fective 2022-Present) Name:Brendon Tony Relation to Subscriber:Self Name:Brendon Tony Payer ID:[id number] (NAIC) Type:CONTRACTED Address: [address] Member Subscriber Plan / Payer (Ef fective 2022-Present) Name:Brendon Tony Relation to Subscriber:Self Name:Brendon Tony Payer ID:[id number] Group ID:Not on file Type:CONTRACTED Address: [place] [address] Member Subscriber Plan / Payer (Ef fective 2022-Present) Name:Brendon Tony Relation to Subscriber:Self Name:Brendon Tony Payer ID:[id number] Group ID:Not on file Type:CONTRACTED Address: [address] [place] [id number] [facility] Member Subscriber Plan / Payer (Ef fective 2022-Present) Name:Brendon Tony Relation to Subscriber:Self Name:Brendon Tony Payer ID:[id number] Group ID:Not on file Type:CONTRACTED Address: [address] [place] [id number] Advance Directives * Full Code (Latest Code [...]
--- OUTSIDE RECORDS SUMMARY | 2025-04-29 01:01 | XMS_ITS | Clinical Summary ---
Author Organization [employer] Address [address] [place] [address] Phone Care Team Providers Care Assistant Laboratory Director Name Role Phone Unavailable Primary Care Provider [...] Vaccine (1 of 2 - PCV) 02/18/1991 [facility] Lung Cancer Screening Sh ared Decision Making [...] LAB CHEMISTRY METHOD 12/08/2024 11:33 PM CDT [facility] MAIN LAB BUN 9 9 - 20 mg/dL LAB CHEMISTRY METHOD 12/08/2024 11:33 PM CDT [facility] MAIN LAB Creatinine 1.14 0.66 - 1.25 mg/dl LAB CHEMISTRY METHOD 12/08/2024 11:33 PM CDT [facility] MAIN LAB BUN/Creatinine Ratio 8(L) 12 - 17 LAB CHEMISTRY METHOD 12/08/2024 11:33 PM CDT [facility] MAIN LAB Sodium 137 135 - 145 mmol/L LAB CHEMISTRY METHOD 12/08/2024 11:33 PM CDT [facility] MAIN LAB Potassium 3.8 3.6 - 5.0 mmol/L LAB CHEMISTRY METHOD 12/08/2024 11:33 PM CDT [facility] MAIN LAB Chloride 109 101 - 111 mmol/L LAB CHEMISTRY METHOD 12/08/2024 11:33 PM CDT [facility] Total Carbon Dioxide 24 22 - 30 mmol/L LAB CHEMISTRY METHOD 12/08/2024 11:33 PM CDT [facility] MAIN LAB Anion Gap 8(L) 9 - 17 mmol/L LAB CHEMISTRY METHOD 12/08/2024 11:33 PM CDT [facility] MAIN LAB Calcium 8.8 8.2 - 10.2 mg/dL LAB CHEMISTRY METHOD 12/08/2024 11:33 PM CDT [facility] MAIN LAB Total Protein, Serum 6.9 5.6 [...] LAB CHEMISTRY METHOD 12/08/2024 11:33 PM CDT [facility] MAIN LAB AST (SGOT) 23 9 - [...] Fi nal Result [facility] [address] [address] from Last 3 Months or Most Recently Relevant to Health Maintenance Insurance [employer]
--- OUTSIDE RECORDS SUMMARY | 2025-04-29 01:01 | XMS_ITS | Clinical Summary ---
Author Organization [facility] Address [address] [place] [address] Phone Care Team Providers Care Mold Inspector Name Role Phone Unavailable Primary Care Provider [...] moderate s/p open right hemicolectomy 04/17/2023 for [place] n polyp 04/17/2023 HTN (hypertension), benign 08/03/2019 [...] drink = 0.6 oz pur e alcohol) [facility] Utilities Answer Date Recorded In the past 12 months has th e [employer], gas, oil, or water [employer] threatened to shut off services in your [...] history exists Medical Devices Implanted Type Area Plastic Cnc Machine Operator Device Identifier Shelf Expiration Date Model / Serial / Lot Capsule [facility]-0635 - [id number] Implanted:Qty: 1 on 03/23/2024 by Edgardo Salazar DO at [facility] Other N/A: Esophagus [employer] door puller. GIVEN [id number] 04/28/2025 [facility]-0635 / / [id number] Description:ID# [id number]; place d at 31cm Procedures [...] DO - 04/04/2023 9:31 AM CDT [facility] GI Patient Name: Brendon Tony Procedure Date: [...] Scope Out: 9:26:15 AM [address] [place], [place] Edgardo Salazar DO GI PROCEDURE ORDERABLES Final Result from Last 3 Months or Most Recently Relevant to Health Maintenance Insurance [employer] [place] [id number] [employer] Medicaid [place] [id number] Advance Directives For more information, please contact: [phone] * Full Code (Latest Code Status on [...]
[2025-04-29 01:11] VITALS: BP 154/96; PULSE 97; RESP 24; TEMP 36.6; O2SAT 99; BMI 23.5
[2025-04-29 01:46] VITALS: RESP 20
== END 2025-04-29 02:15 | disposition home or self-care (01) ==
PROVIDERS: Emergency Provider Emergency Medicine; PCP Nurse Practitioner
DX: G89.18 Other acute postprocedural pain (principal); R60.9 Edema, unspecified; Z72.0 Tobacco use; Z98.890 Other specified postprocedural states
CPT/HCPCS: 96372; 99284; J1885; J2175

== ENCOUNTER 2025-04-30 19:27 | Observation (INO) | payer MEDICAID, SELFPAY ==
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
[2025-04-30] VITALS (8 sets, daily range): BP systolic 144–187; BP diastolic 92–105; PULSE 69–88; RESP 16–21; TEMP 36.6; O2SAT 94–100
--- OUTSIDE RECORDS SUMMARY | 2025-04-30 19:34 | XMS_ITS | Clinical Summary ---
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 5 Active methocarbamoL (ROBAXIN) 750 mg tablet Take 1 Tablet (750 mg) by mouth 3 times daily for 10 days. 30 Tablet 5 05/09/20 25 Active naproxen (NAPROSYN) 500 mg tablet Take 1 Tablet (500 mg) by mouth 2 times daily with meals. 60 Tablet 5 Active HYDROcodone-acet aminophen (NORCO) 5-325 mg tabletIndication s:Post-op pain,Acute pain of left shoulder Take 1 Tablet by mouth every 4 hours as needed for Pain, Moderate. Max Daily Amount: 6 Tablets 10 Tablet 5 Active Active Problems Problem Noted Date Diagnosed Date Iron deficiency anemia 12/03/2024 Constipation, unspecified 12/02/2024 Intractable vomiting with nausea 12/02/2024 Leukocytosis (leucocytosis) 12/02/2024 Protein-calorie malnutrition, moderate 3 s/p open right hemicolectomy 04/17/2023 for [place] n polyp 04/17/2023 HTN (hypertension), benign 08/03/2019 Overview (12/02/2024): cont BP medication the day of procedure Resolved Problems Problem Noted Date Diagnosed Date Resolved Date Other chest pain 01/11/2025 01/11/2025 Encounters Date Type Department Care Team Description 04/29/2025 5:33 PM PRACTICE ADMINISTRATOR - 04/29/2025 6:47 PM PRACTICE ADMINISTRATOR Emergency [facility] Emergency Department [address] [place] [id number] Amparo Han DO Post-op pain (Primary Dx); Acute pain of left shoulder Discharge Disposition: Home or Self Care 04/29/2025 Travel 04/13/2025 External Device Data STL ABSTRACTION Provider, [...] drink = 0.6 oz pur e alcohol) [facility] Utilities Answer Date Recorded In the [...] worry about transportation for future doctor visits, mushroom picker medication, etc.? No 2024 Housing Stability Answer [...] Comments Blood Pressure 141/99 04/29/2025 2:48 PM PRACTICE ADMINISTRATOR Pulse 98 04/29/2025 2:48 PM PRACTICE ADMINISTRATOR Temperature 36.8 C (98.2 F) 04/29/2025 2:48 PM PRACTICE ADMINISTRATOR Respiratory Rate 18 04/29/2025 2:48 PM PRACTICE ADMINISTRATOR Oxygen Saturation 99% 04/29/2025 2:48 PM PRACTICE ADMINISTRATOR Inhaled Oxygen Concentration - - Weight 69.4 kg (153 lb) 04/29/2025 2:48 PM PRACTICE ADMINISTRATOR Height 170.2 cm (5' 7 ) 04/29/2025 2:48 PM PRACTICE ADMINISTRATOR Body Mass Index 23.96 04/29/2025 2:48 PM PRACTICE ADMINISTRATOR Plan of Treatment Health Maintenance Due Date Last Done Comments DTAP/TDAP/TD VACCINES (1 - Tdap) 02/18/1991 HEPATITIS B VACCINES (1 of 3 - 19+ 3-dose series) 02/18/1991 07/14/2020 FIT-DNA Q 3 years 02/18/2017 FIT/FOBT Q 1 year 02/18/2017 Flex Sig/CT Colonography Q 5 years 02/18/2017 ZOSTER VACCINE (1 of 2) 02/18/2022 INFLUENZA VACCINE (#1) 2025 COLORECTAL SCREENING 04/04/2033 04/04/2023, 04/04/20 23 Colorectal Cancer Screening 04/04/2033 Abdominal Aortic Aneurysm (A AA) Screening Completed 06/10/2024, 11/25/2022, 11/23/2022, Additional history exists Medical Devices Implanted Type Area Associate Director Of Development Device Identifier Shelf Expiration Date Model / Serial / Lot Capsule Clifford Ph Testing Formerly [facility]-0635 - [id number] Implanted:Qty: 1 on 03/23/2024 by Edgardo Salazar DO at 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 GIVEN [id number] 04/28/2025 FGS-0635 / / [id number] Description:ID# [id number]; place d at 31cm Procedures Procedure Name Priority Date/Time Associated Diagnosis Comments US DOPPLER VENOUS ARM LEFT Stat 04/29/2025 3:51 PM PRACTICE ADMINISTRATOR TELEMETRY REPORT 01/28/2025 2:50 PM CDT COLONOSCOPY REPORT 04/04/2023 9: 31 AM CDT from Last 3 Months or Most Recently Relevant to Health Maintenance Results * US DOPPLER VENOUS ARM LEFT (04/29/2025 3:51 PM PRACTICE ADMINISTRATOR) Anatomical Region Laterality Modality Upper Extremity Ultrasound 04/29/2025 3:34 PM PRACTICE ADMINISTRATOR Narrative 04/29/2025 8:00 PM PRACTICE ADMINISTRATOR [facility] Cardiovascular Services Noninvasive Vascular Laboratory [address] [place] [address] Noninvasive Vascular Lab Venous Exam Limited Upper Extremity Duplex Patient: Brendon Tony Study ID: US DOPPLER VENOU Gender: M : 1970 Age: 55 Room: Height: Weight: BSA: Pt status: Emergency Study Date: 04/29/2025 Study Time: 03:34:55 PM BSA: Ordering: Dave Mason Interpreting:Gustavo Hawkins Educational Recruiter: DENA Indications: Extremity Edema. History: Risk factors: [...] - Read back and verified. - 04/29/2025 160 - Hematoma left upper arm [facility] Vascular Lab is accredited with the Intersocietal Commission for the Accreditation of Vascular Laboratories (ICAVL) Prepared and Electronically Authenticated Gustavo Hawkins Confirmed 04/29/2025 20:00 Procedure Note Gustavo Hawkins MD - 04/29/2025 [facility] Cardiovascular Services Noninvasive Vascular Laboratory [facility] [place] [address] Noninvasive Vascular Lab Venous Exam Limited Upper Extremity Duplex Patient: Brendon Tony Study ID: US DOPPLER ANDREA Gender: M : 1970 Age: 55 Room: Height: Weight: BSA: Pt status: Emergency Study Date: 04/29/2025 Study Time: 03:34:55 PM BSA: Ordering: Dave Mason Interpreting:Gustavo Hawkins Educational Recruiter: DENA Indications: Extremity Edema. History: Risk factors: [...] - 1605 - Hematoma left upper arm [facility] Vascular Lab is accredited with theIntersocietal Commission for the Accreditation of Vascular Laboratories (ICAVL) Prepared and Electronically Authenticated Gustavo Hawkins Confirmed 04/29/2025 20:00 Dave Mason NP US ORDERABLES Final Result * TELEMETRY REPORT (01/28/2025 2:50 PM CDT) us Provider Scanning ECG ORDERABLES Final Result * COLONOSCOPY REPORT (04/04/2023 9:31 AM CDT) Narrative Procedure Note Edgardo Salazar DO - 04/04/2023 9:31 AM CDT [facility] GI Patient Name: Brendon Tony Procedure Date: [...] Scope Out: 9:26:15 AM [address] [place], [place] Edgardo Salazar DO GI PROCEDURE ORDERABLES Final Result from Last 3 Months or Most Recently Relevant to Health Maintenance Insurance RX [employer] Medicaid [facility] [id number] Advance Directives For more information, please contact: [phone] * Full Code (Latest Code Status on [...]
--- OUTSIDE RECORDS SUMMARY | 2025-04-30 19:34 | XMS_ITS | Clinical Summary ---
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 No 11/05/2024 Alcohol Use Answer [...] this topic Medical Devices Implanted Type Area Woodworker Device Identifier Shelf Expiration Date Model / Serial / Lot Clip Replay Hemo 16mm 1169-07 Cn 117 - [id number] Implanted:Qty: 1 on 03/02/2022 by Reyna Govea MD at [facility] Closure Device 04/19/2024 117 / / [id number] Description:duodenal ulcer Procedures Procedure Name Priority Date/Time [...] CDT) Cholesterol 147 0 - 200 mg/dL [facility] Triglycerides 103 0 - 150 mg/dL [facility] HDL 49 40 - 60 mg/dL [facility] LDL Cholesterol 79 0 - 100 mg/dL [facility] VLDL, Calc 19 5 - 40 mg/dL [facility] LDL/HDL Ratio 1.58 [facility] Blood 12/04/2022 4:46 AM CDT 12/04/2022 4:49 AM CDT Narrative [facility] - 12/04/2022 1:38 PM CDT Cholesterol [...] Marina MD CHEMISTRY ORDERABLES Final Res ult [facility] [address] [place] [address] * OCCULT BLOOD FECES, DIAGNOSTIC (11/11/2022 12:05 PM CDT) Occult Blood NEGATIVE NEGATIVE [facility] Stool specimen (specimen) STOOL / Unknown 11/11/2022 12:05 PM CDT 11/11/2022 12:29 PM CDT us Mariya Ogden NP BODY FLUIDS AND STOOLS ORDER DONOVAN Final Result Performing Organization Address [facility] [place] [facility] Co de Phone Number [facility] [address] [phone] * (ABNORMAL) ACUTE HEPATITIS PANEL (03/02/2022 6:53 AM CDT) Hepatitis B Surface Antigen NONREACTIVE (NEG) NONREACTIVE (NEG) [facility] Hepatitis B Core IgM Antibody NONREACTIVE (NEG) NONREACTIVE (NEG) [facility] Hepatitis C IgG Antibody REACTIVE (POSITIVE)(A) NONREACTIVE (NEG) [facility] Comment:===REPORTABLE DISEAS E=== Hepatitis A IgM Antibody NONREACTIVE (NEG) NONREACTIVE (NEG) [facility] Hepatitis B Surface Antigen Comment [facility] Comment: THIS ASSAY HAS NOT BEEN FDA CLEARED OR APPROVED FOR THE SCREENING OF BLOOD OR PLASMA DONORS. CURRENT METHODS FOR THE DETECTION OF HEP B SURFACE AG MAY NOT DETECT ALL INFECTED INDIVIDUALS. Hep B Core IgM Comment [facility] Comment: THIS ASSAY HAS NOT BEEN FDA CLEARED OR APPROVED FOR THE SCREENING OF BLOOD OR PLASMA DONORS. Hep C IgG Comment [facility] Comment: THIS ASSAY HAS NOT BEEN FDA CLEARED OR APPROVED FOR THE SCREENING OF BLOOD OR PLASMA DONORS. TEST PERFORMED USING [employer] ELECTR[employer]HEM[employer] TECHNOLOG[employer] Hep A IgM Comment [facility] Comment: THIS ASSAY HAS NOT BEEN FDA CLEARED OR APPROVED FOR THE SCREENING OF BLOOD OR PLASMA DONORS. IN PATIENTS RECEIVING THERAPY WITH >5 MG/DAY BIOTIN, NO SAMPLE SHOULD BE TAKEN UNTIL AT LEAST 8 HRS AFTER LAST BIOTIN DOSE. Blood specimen (specimen) 03/02/2022 6:53 AM CDT 03/02/2022 7:27 AM CDT Kranthi Agee DO CHEMISTRY ORDERABLES Final Result Performing Organization Address [facility] [place] [facility] Co de Phone Number [facility] [address] [place], [place] [address] [phone] * HIV 1 AND 2 COMBO ANTIGEN/ANTIBODY (03/02/2022 6:53 AM CDT) [facility] HIV 1 AND 2 COMBO AG/AB NONREACTIVE (NEG) NONREACTIVE (NEG) [facility] HIV COMMENT THIS ASSAY HAS NOT BEEN FDA CLEARED OR APPROVED FOR THE SCREENING OF BLOOD OR PLASMA DONORS. TEST PERFORMED USING [employer] CURRENT METHODS FOR THE DETECTION OF HIV 1 AND/OR 2 ANTIBODIES MAY NOT DETECT ALL INFECTED INDIVIDUALS. A REACTIVE RESULT DOESN'T DISTINGUISH BETWEEN HIV-1 p24 Ag, HIV-1 Ab, HIV-2 Ab, OR HIV-1 GROUP O Ab. [facility] 03/02/2022 6:53 AM CDT 03/02/2022 7:27 AM CDT Kranthi Agee DO IMMUNOLOGY ORDERABLE S Final Result Performing Organization Address [facility] [place] [facility] Co de Phone Number [facility] [address] [id number] [phone] from Last 3 Months or Most Recently Relevant to Health Maintenance Insurance [address] [address] Member Subscriber Plan / Payer (Ef fective 2022-Present) Name:Brendon Tony Relation to Subscriber:Self Name:Brendon Tony Payer ID:[id number] Group ID:Not on file Type:CONTRACTED Address: [facility] [address] [place] [address] [facility] Member Subscriber Plan / Payer (Ef fective 2022-) Name:Brendon Tony Relation to Subscriber:Self Name:Brendon Tony Payer ID:[id number] (NAIC) Type:CONTRACTED Address: [place] [id number] [facility] Member Subscriber Plan / Payer (Ef fective 2022-) Name:Brendon Tony Relation to Subscriber:Self Name:Brendon Tony Payer ID:[id number] Group ID:Not on file Type:CONTRACTED Address: [place] [id number] Member Subscriber Plan / Payer (Ef fective 2022-Present) Name:Brendon Tony Relation to Subscriber:Self Name:Brendon Tony Payer ID:[id number] Group ID:Not on file Type:CONTRACTED Address: [address] [address] [facility] Member Subscriber Plan / Payer (Ef fective 2022-Present) Name:Brendon Tonyjulianna Relation to Subscriber:Self Name:Brendon Tony Payer ID:[id number] Group ID:Not on file Type:CONTRACTED Address: [address] [place] [id number] Advance Directives * Full Code (Latest Code [...]
--- OUTSIDE RECORDS SUMMARY | 2025-04-30 19:34 | XMS_ITS | Encounter Summary ---
Author Organization [facility] Address [address] Gracia: Epic Prelude ADT SANDRA LIND [address] Care Team Providers Care Operator Automated Process Name Role Phone Unavailable Primary Care Provider Unavailabl e Encounter Details Date Type Department Care Team (Latest Contact Info) Description 04/29/2025 Travel Social History Tobacco Use Types Packs/Day Years Used Date Smoking Tobacco: Every Day Cigarettes Smokeless Tobacco: Never Alcohol Use Standard Drinks/Week Comments Not Currently 0 (1 standard drink = 0.6 oz pur e alcohol) [facility] Utilities Answer Date Recorded In the past 12 months has e [employer], gas, oil, or water [employer] threatened to shut off services in your [...] worry about transportation for future doctor visits, 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 No 2024 Housing Stability [...]
--- OUTSIDE RECORDS SUMMARY | 2025-04-30 19:34 | XMS_ITS | Clinical Summary ---
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 Name Role Phone Unavailable Primary Care Provider [...] Vaccine (1 of 2 - PCV) 02/18/1991 [facility] Lung Cancer Screening Sh ared Decision Making [...] LAB CHEMISTRY METHOD 12/08/2024 11:33 PM CDT [facility] BUN 9 9 - 20 mg/dL LAB CHEMISTRY METHOD 12/08/2024 11:33 PM CDT [facility] Creatinine 1.14 0.66 - 1.25 mg/dl LAB CHEMISTRY METHOD 12/08/2024 11:33 PM CDT [facility] BUN/Creatinine Ratio 8(L) 12 - 17 LAB CHEMISTRY METHOD 12/08/2024 11:33 PM CDT [facility] Sodium 137 135 - 145 mmol/L LAB CHEMISTRY METHOD 12/08/2024 11:33 PM CDT [facility] Potassium 3.8 3.6 - 5.0 mmol/L LAB CHEMISTRY METHOD 12/08/2024 11:33 PM CDT [facility] Chloride 109 101 - 111 mmol/L LAB CHEMISTRY METHOD 12/08/2024 11:33 PM CDT [facility] Total Carbon Dioxide 24 22 - 30 mmol/L LAB CHEMISTRY METHOD 12/08/2024 11:33 PM CDT [facility] Anion Gap 8(L) 9 - 17 mmol/L LAB CHEMISTRY METHOD 12/08/2024 11:33 PM CDT [facility] Calcium 8.8 8.2 - 10.2 mg/dL LAB CHEMISTRY METHOD 12/08/2024 11:33 PM CDT [facility] Total Protein, Serum 6.9 5.6 [...] LAB CHEMISTRY METHOD 12/08/2024 11:33 PM CDT [facility] AST (SGOT) 23 9 - [...] Fi nal Result [facility] [address] [address] from Last 3 Months or Most Recently Relevant to Health Maintenance Insurance [employer] MEDICAID
--- OUTSIDE RECORDS SUMMARY | 2025-04-30 19:34 | XMS_ITS | Encounter Summary ---
Author Organization [facility] Address [address] [place] [address] Care Team Providers Care Client Executive Name Role Phone Unavailable Primary Care Provider Unavailabl e Reason for Visit * Reason Onset Date Comments OTHER 04/14/2024 Encounter Details Date Type Department Care Team (Late st Contact Info) Description 04/14/2024 Telephone [facility] Gen Spec S[facility] [place] [address] [facility] [address] [place] [address] Juan R Horn MD [address] [place] [address] OTHER Social History Tobacco Use Types Packs/Day Years Used Date Smoking Tobacco: Every Day Cigarettes Smokeless Tobacco: Never Alcohol Use Standard Drinks/Week Comments Not Currently 0 (1 standard drink = 0.6 oz pur e alcohol) [facility] Utilities Answer Date Recorded In the past 12 months has e [employer], gas, oil, or water [employer] threatened to shut off services in your [...]
--- NOTE | 2025-04-30 20:00 | CTR_ITS ---
PROCEDURE INFORMATION: Exam: CT Abdomen And Pelvis Without Contrast Exam date and time: 04/30/2025 9:00 PM Age: 55 years old Clinical indication: Abdominal pain; Prior surgery; Surgery date: 6+ months; Surgery type: Bowel resection, hernia repair, splenectomy, gallbladder; Additional info: Rlq abd pain TECHNIQUE: Imaging protocol: Computed tomography of the abdomen and pelvis without contrast. Radiation optimization: All CT scans at this facility use at least one of these dose optimization techniques: automated exposure control; mA and/or kV adjustment per patient size (includes targeted exams where dose is matched to clinical indication); or iterative reconstruction. COMPARISON: CT abdomen pelvis w con* [id number] 11/27/2024 2:03 AM RADIATION DOSE METRICS: Total DLP (mGy-cm): 1428.01 FINDINGS: Liver: Unremarkable. Gallbladder and biliary ducts: Previous cholecystectomy Pancreas: No ductal dilation. Spleen: Previous splenectomy. Adrenal glands: Normal. No mass. Kidneys and ureters: Previous left nephrectomy. No right hydronephrosis. Stomach and bowel: Postsurgical changes noted in the right colon. However there are findings suspicious possible perforated distal gastric/duodenal ulcer given the stranding noted about the distal stomach and proximal duodenum. Appendix: The appendix is not identified. There are no focal inflammatory changes in the right lower quadrant. Intraperitoneal space: Free intraperitoneal air. Exact etiology of free air on this exam is limited. Moderate amount of free fluid in the left upper quadrant. Vasculature: No abdominal aortic aneurysm. Lymph nodes: No enlarged lymph nodes. Urinary bladder: Unremarkable as visualized. Reproductive: Unremarkable. Bones/joints: Unremarkable. No acute fracture. Soft tissues: Unremarkable. CT/CT abdomen pelvis wo con [id number] IMPRESSION: Free intraperitoneal air. Exact etiology of free air on this exam is limited. However there are findings suspicious possible perforated distal gastric/duodenal ulcer given the stranding noted about the distal stomach and proximal duodenum. Moderate amount of free fluid in the left upper quadrant.
--- NOTE | 2025-04-30 20:13 | ED_ITS ---
HPI - Abdominal Pain 2 General: Chief Complaint: Abdominal Pain Stated Complaint: ABD PAIN Time Seen by Provider: 04/30/25 19:29 History of Present Illness: Patient is a 55-year-old male who presents with complaints of abdominal pain and hematemesis described as red coffee ground material. He reports having undergone left bicep surgery the other day and is now experiencing significant discomfort in the lower abdominal region on the right. The pain is associated with sweating and chills ( freezing to ). Patient reports vomiting en route to the facility today. He denies having bowel movements since his surgery and denies diarrhea. Patient acknowledges ongoing nausea. He has a history of previous abdominal surgeries years ago, apparently nephrectomy and splenectomy Related Data Home Medications ?Medication ?Instructions ?Recorded ?Confirmed naloxone 4 mg/actuation nasal See Rx Instructions .Rou te .COMPLEX 05/01/25 05/01/25 spray (Narcan) Previous Rx's ?Medication ?Instructions ?Recorded methocarbamol 750 mg tablet 750 mg PO Q8H PRN muscle s pasm #30 04/14/25 tabs amoxicillin 500 mg capsule 500 mg PO BID #20 caps 03/24 03/17 naproxen 375 mg tablet 375 mg PO BID PRN pain #60 t abs 04/20/25 hydrocodone 5 mg-acetaminophen 325 1 tab PO Q6H PRN pa in #30 tabs 04/27/25 mg tablet Allergies Allergy/AdvReac Type Severity Reaction Status Date / Time adhesive Allergy ALGY-Rash Verified 04/26/25 14:08 Latex, Natural Rubber Allergy ALGY-Rash Verified 04/26/25 14:08 [facility] ED 2 PFSH: Surgical History Hx of splenectomy History of hernia repair Hx laparoscopic cholecystectomy Hx of brain surgery Social History Smoking and tobacco/nicotine status: current every day tobacco/nicotine user Physical Exam 2 Const: COMMON NORMALS: no acute distress GENERAL APPEARANCE: cooperative; not ill appearing and not frail appearing HENMT: COMMON NORMALS: normocephalic, atraumatic and Normal external nose present HEAD & SCALP: normocephalic and atraumatic FACE & SINUS: normal facial exam and face symmetric NOSE: Normal external nose present Eye: COMMON NORMALS: Equal, round and reactive pupils present and EOMs intact bilaterally PUPIL: Yes Equal, round and reactive pupils present Neck/C-Spine: GENERAL: Yes trachea midline Chest: CHEST: Yes Symmetrical chest wall rise Resp: COMMON NORMALS: normal respiratory effort, No retractions, No use of accessory muscles and clear to auscultation bilaterally AUSCULTATION: clear to auscultation bilaterally Cardio: COMMON NORMALS: regular rate and regular rhythm RATE: regular rate RHYTHM: regular rhythm GI: COMMON NORMALS: Normal to inspection, nondistended, normoactive bowel sounds present and Soft to palpation PALPATION: Yes Soft to palpation Extremity: COMMON NORMALS: no pedal edema Neuro: [place] COMA SCALE: document GCS findings [place] coma scale eye opening: Spontaneous [place] coma scale verbal response: Orientated [place] coma scale motor response: Obey commands [place] coma scale total score: 15 S ENSORY EXAM: Yes extremities (intact) Psych: COMMON NORMALS: speech normal SPEECH: Yes normal speech Skin: NARRATIVE SKIN EXAM: Ecchymosis left upper chest. Surgical incision covered left shoulder anterior arm no significant swelling to the forearm. Pulses are normal. Hand and wrist movements are normal. Sensation is normal. Course 2 Vital Signs: Vital signs: Vital Signs Temperature 96.6 F L 05/01/25 10:04 Pulse Rate 97 05/01/25 13:30 Respiratory Rate 16 05/01/25 13:30 Blood Pressure 108/65 05/01/25 13:30 Pulse Oximetry 95 05/01/25 13:30 Oxygen Delivery Me thod Room Air 05/01/25 13:30 Oxygen Flow Rate 2 05/01/25 03:35 MDM - Abdominal Pain Medical Decision Making 55-year-old male patient with recent biceps tendon surgery . He complains of abdominal pain, mainly right-sided. He is quite tender on exam. Initially, he was hypertensive. Afebrile. The patient does not have great veins, and there was some trouble getting IV access initially. CT was performed originally without contrast because of this. It shows free intraperitoneal air, with source being limited, but it was suspicious for perforated distal gastric or duodenal ulcer . His white blood cell count is 29.5. 82% neutrophils. Sodium 134 . His CRP is 18. Lipase is normal. Urinalysis is negative. I spoke with general surgeon on receiving CT findings . He has reviewed the images himself. He will take the patient to the OR emergently tonight. Our team is being called in. The patient remains stable at this time. He did reveive fluid bolus and abx coverage prior to going to the OR. Lab Data 05/01/25 10:40 05/01/25 04:28 Labs/Radiology: Radiology Impressions Abdomen/Pelvis CT 04/30/25 20:00 IMPRESSION: Free intraperitoneal air. Exact etiology of free air on this exam is limited. However there are findings suspicious possible perforated distal gastric/duodenal ulcer given the stranding noted about the distal stomach and proximal duodenum. Moderate amount of free fluid in the left upper quadrant. ADDENDUM: 04/30/25 [id number] THIS REPORT CONTAINS FINDINGS THAT MAY BE CRITICAL TO PATIENT CARE. The findings were verbally communicated via telephone conference with Dr. Valentin 945 p.m. GERIATRIC NURSE ASSISTANT on 04/30/2025. The findings were acknowledged and understood. Chest X-Ray 05/01/25 02:34 IMPRESSION: Gastric tube terminus projects at the expected area of the stomach. Laboratory Results WBC 29.50 10^3/uL (3.29-11.43) H 04/30/25 22:38 RBC 4.69 10^6/uL (3.85-5.65) 04/30/25 22:38 Hgb 9.40 g/dL (11.27-16.99) L 04/30/25 22:38 Hct 31.9 % (37-53) L 04/30/25 22:38 MCV 68.0 fl (82-101) L 04/30/25 22:38 MCH 20.0 pg (27-33) L 04/30/25 22:38 MCHC 29.5 g/dL (30-55) L 04/30/25 22:38 RDW 19.2 % (12.1-15.1) H 04/30/25 22:38 Plt Count 502 10^3/cmm (157-399) H 04/30/25 22:38 MPV 9.2 fL (7.4-10.4) 04/30/25 22:38 Neut % (Auto) 81.5 % 04/30/25 22:38 Lymph % (Auto) 7.2 % 04/30/25 22:38 Turner % (Auto) 10.3 % 04/30/25 22:38 Eos % (Auto) 0.0 % 04/30/25 22:38 Baso % (Auto) 0.3 % 04/30/25 22:38 Neut # (Auto) 24.07 10^3/uL (1.8-7.7) H 04/30/25 22:38 Lymph # (Auto) 2.1 10^3/uL (0.8-4.8) 04/30/25 22:38 Turner # (Auto) 3.0 10^3/uL (0.2-0.9) H 04/30/25 22:38 Eos # (Auto) 0.0 10^3/uL (0.0-0.8) 04/30/25 22:38 Baso # (Auto) 0.1 10^3/uL (0.0-0.1) 04/30/25 22:38 Nucleated RBC % (auto) 0.1 % 04/30/25 22:38 Nucleated RBCs # 0.0 /100WBC 04/30/25 22:38 Sodium 134 mmol/L (136-145) L 04/30/25 22:38 Potassium 4.1 mmol/L (3.5-5.1) 04/30/25 22:38 Chloride 103 mmol/L (98-107) 04/30/25 22:38 Carbon Dioxide 18 mmol/L (22-29) L 04/30/25 22:38 Anion Gap 17.1 (5-19) 04/30/25 22:38 BUN 14 mg/dL (6-20) 04/30/25 22:38 Creatinine 0.6 mg/dL (0.7-1.2) L 04/30/25 22:38 GFR Calculation 140.9 mL/min (90-130) H 04/30/25 22:38 Glucose 104 mg/dL (65-115) 04/30/25 22:38 Calculated Osmolality 279 mOsm/kg (285-295) L 04/30/25 22:38 Calcium 8.9 mg/dL (8.5-10.5) 04/30/25 22:38 Total Bilirubin 0.5 mg/dL (0.15-1.2) 04/30/25 22:38 AST 46 U/L (0-40) H 04/30/25 22:38 ALT 22 U/L (0-41) 04/30/25 22:38 Alkaline Phosphatase 112 U/L (40-130) 04/30/25 22:38 C-Reactive Protein 17.7 mg/L (0.0-4.9) H 04/30/25 22:38 Total Protein 7.0 g/dL (6.6-8.7) 04/30/25 22:38 Albumin 3.9 g/dL (3.5-5.2) 04/30/25 22:38 Globulin 3.1 g/dL (1.3-4.6) 04/30/25 22:38 Lipase 28 U/L (13-60) 04/30/25 22:38 Urine Color Yellow (Yellow) 04/30/25 20: Urine Appearance Clear (CLEAR) 04/30/25 20: Urine pH 7.0 (5-7) 04/30/25 20: Ur Specific [place] 1.015 (1.005-1.030) 04/30/25 20: Urine Protein 1+ (Negative) A 04/30/25 20: Urine Glucose (UA) Negative (Normal) 04/30/25 20:09 Urine Ketones Trace (Negative) 04/30/25 20: Urine Blood Negative (Negative) 04/30/25 20: Urine Nitrate Negative (Negative) 04/30/25 20: Urine Bilirubin Negative (Negative) 04/30/25 20: Urine Urobilinogen 1.0 mg/dL (Negative) 04/30/25 20:09 Ur Leukocyte Esterase Negative (Negative) 04/30/25 20: Urine RBC 0-2 /hpf (0-2) 04/30/25 20:09 Urine WBC 0-5 /hpf (0-5) 04/30/25 20:09 Ur Squamous Epith Cells 0-5 /hpf (0-5) 04/30/25 20: Amorphous Sediment Not Reportable 04/30/25 20: Urine Bacteria None seen /hpf (NONE) 04/30/25 20: Hyaline Casts 2.05 /lpf 04/30/25 20:09 Urine Opiates Screen Positive ng/mL (Negative) H 04/30/25 20:09 Ur Barbiturates Screen Negative ng/mL (Negative) 04/30/25 20: Ur Phencyclidine Scrn Negative ng/mL (Negative) 04/30/25 20:09 Ur Amphetamines Screen Negative ng/mL (Negative) 04/30/25 20:09 U Benzodiazepines Scrn Negative ng/mL (Negative) 04/30/25 20:09 Urine Cocaine Screen Negative ng/mL (Negative) 04/30/25 20:09 U Marijuana (THC) Screen Negative ng/mL (Negative) 04/30/25 20:09 All radiology interpretation(s) finalized by discharge Discharge Plan Discharge Patient Disposition: Admitted As Inpatient Admit Provider: Joni Pierre Clinical Impression: Gastric ulcer with perforation Condition: Serious Coding Level of Care Code ED Director Loan for 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
[2025-04-30 20:18] LABS: Glucose Urine UA Negative (Normal); Nitrate Urine Negative (Negative); Specific Gravity, Urine 1.015 (1.005-1.030)
[2025-04-30 20:23] LABS: Add Urine Microscopic? YES
[2025-04-30 20:27] LABS: PCP Screen Urine Negative (Negative)
[2025-04-30] MEDS: morphine 4 mg/mL SDV 1 mL IVP ×2 (21:12→23:33)
[2025-04-30] MEDS: ondansetron 2 mg/ML SDV 2 mL 4 MG IVP ×2 (21:12→23:33)
[2025-04-30 22:46] LABS: Hematocrit 31.9 % (37-53); Hemoglobin 9.40 g/dL (11.27-16.99); Mean Corpuscular HGB Conc 29.5 g/dL (30-55); Mean Corpuscular Hemoglobin 20.0 pg (27-33); Mean Corpuscular Volume 68.0 fl (82-101); Nucleated Red Blood Cells % 0.1 %; Platelet Count 502 10^3/cmm (157-399); Red Blood Count 4.69 10^6/uL (3.85-5.65); White Blood Count 29.50 10^3/uL (3.29-11.43)
[2025-04-30] MEDS: pantoprazole 40 mg SDV 80 MG IVP (22:49)
[2025-04-30 23:09] LABS: Alanine Aminotransferase 22 U/L (0-41); Albumin Level 3.9 g/dL (3.5-5.2); Alkaline Phosphatase 112 U/L (40-130); Blood Urea Nitrogen 14 mg/dL (6-20); Calcium 8.9 mg/dL (8.5-10.5); Carbon Dioxide 18 mmol/L (22-29); Chloride 103 mmol/L (98-107); Globulin 3.1 g/dL (1.3-4.6); Glucose 104 mg/dL (65-115); Lipase 28 U/L (13-60); Osmolality Calculated 279 mOsm/kg (285-295); Sodium 134 mmol/L (136-145); Total Protein 7.0 g/dL (6.6-8.7)
[2025-04-30 23:13] LABS: Anion Gap 17.1 (5-19); Aspartate Amino Transferase 46 U/L (0-40); Potassium 4.1 mmol/L (3.5-5.1)
[2025-04-30] MEDS: piperacillin-tazobactam 3.375 GM in sodium chloride 0.9% (plus) 50 ML IV (23:17)
[2025-05-01] VITALS (71 sets, daily range): BP systolic 92–124; BP diastolic 60–78; PULSE 81–99; RESP 16–17; TEMP 35.9–36.9; O2SAT 90–99
--- NOTE | 2025-05-01 00:26 | P.HP_ITS ---
Providers/Chief Complaint 2 Primary Care Provider: MONIQUE Zavaleta Chief Complaint: ABD PAIN History of Present Illness Brendon Tony is a 55 year old male past medical history of peptic ulcer disease with gastric ulcers in the past, smoker, NSAID user, history of a splenectomy as well as a left nephrectomy who presented with free air and fluid. Suspicious for gastric or duodenal perforation. Denies any other general surgeries. Reports 1 day of right lower quadrant pain. Abdomen is tender diffusely. Medications/Allergies Home Medications ?Medication ?Instructions ?Recorded ?Confirmed ?Last Taken ?Type methocarbamol 750 mg tablet 750 mg PO Q8H PRN muscle s pasm #30 04/14/25 04/26/25 04/26/25 Rx tabs amoxicillin 500 mg capsule 500 mg PO BID #20 caps 03/2404/26/25 04/26/25 Rx naproxen 375 mg tablet 375 mg PO BID PRN pain #60 t abs 04/20/25 04/26/25 04/26/25 Rx hydrocodone 5 mg-acetaminophen 325 1 tab PO Q6H PRN pa in #30 tabs 04/27/25 Unknown Rx mg tablet Allergies Allergy/AdvReac Type Severity Reaction Status Date / Time adhesive Allergy ALGY-Rash Verified 04/26/25 14:08 Latex, Natural Rubber Allergy ALGY-Rash Verified 04/26/25 14:08 PFSH Acute 2 PFSH: Surgical History Hx of splenectomy History of hernia repair Hx laparoscopic cholecystectomy Hx of brain surgery Social History Smoking and tobacco/nicotine status: current every day tobacco/nicotine user Vitals/I&O/Wt Last Vital Signs Temp 97.8 F 04/30/25 19:37 Pulse 88 04/30/25 23:34 Resp 21 H 04/30/25 23:34 BP 146/92 04/30/25 23:34 Pulse Ox 98 04/30/25 23:34 O2 Del Method Nasal Cannula 04/30/25 23:34 O2 Flow Rate 2 04/30/25 23:34 04/30/25 04/30/25 05/01/25 14:59 22:59 06:59 Intake Total 0 / 0 50 / 50 Balance 0 / 0 50 / 50 Physical Exam 2 Narrative: Chest: Unlabored breathing room air. No lymphadenopathy. Heart: Regular rate and rhythm. Abdomen: Soft, diffusely tender, mildly distended. Non peritonitic. Data 04/30/25 22:38 04/30/25 22:38 A&P Assessment and plan 1. Perforated viscus: Plan: 55-year-old male who presented with free air suspicious for gastric or duodenal perforation. I had an extensive discussion with the patient and answered all questions. I have discussed non operative/non procedural options and the patient still decides to proceed. Discussed risks and benefits of exploratory laparotomy, possible bowel resection, possible ostomy, possible gastric or duodenal perforation repair, possible partial gastrectomy, possible ABThera, possible endoscopy and patient decides to proceed. Patient understands the risks include bleeding, infection, anastomotic leak, gastric or duodenal ulcer repair leak, iatrogenic small and large bowel injury given multiple prior surgeries, . Patient agrees to proceed. PDMP PDMP Reviewed: Not Reviewed Attestations 2 Medical Necessity Statement*: Perforation of viscus Coding Level of Care Code 75018 Diagnoses Perforated viscus R19.8
--- NOTE | 2025-05-01 01:54 | P.OP_ITS ---
Operative Report Date of procedure: May 01, 2025 Pre-op diagnosis: Perforated viscus Post-op diagnosis: Gastric perforation Post-op findings: 1 cm gastric perforation prepyloric. Dense adhesions throughout the abdomen. Repaired perforation with Conrado patch. [address] [place] drain left in right upper quadrant. Procedure done: Exploratory laparotomy, Conrado patch repair of gastric perforation Implants: N/A Specimens removed/disposition: Cultures from peritoneal fluid sent to microbiology Pathology: none sent Surgeon: Joni Pierre MD Replanting Machine Crewman: N/A Anesthesia: General Estimated blood loss (mL): 50 Complications: N/A Findings: 1 cm gastric perforation prepyloric. Dense adhesions throughout the abdomen. Repaired perforation with Conrado patch. [address] [place] drain left in right upper quadrant. Condition: stable Disposition: ICU Brief History: 55-year-old male with multiple abdominal surgeries including a splenectomy and a left nephrectomy who presented with free air. Suspicious for gastric or duodenal perforation. History of peptic ulcer disease, smoker, NSAID user. Discussed risk and benefits and patient agreed to proceed to the operating room for exploratory laparotomy, possible bowel resection, possible ostomy, possible partial gastrectomy, possible repair of gastric or duodenal perforation, possible endoscopy, possible ABThera. Patient did not want anyone updated unless someone needed to be contacted for medical decision making. Procedure: Consent obtained in the preop area. Preoperative Zosyn administered. Diflucan was administered in the operating room. Patient was laid supine in the operating room table. SCDs were on and working. The left upper extremity which had undergone recent surgery was appropriately padded and was not extended. General anesthesia was induced. A Tyler catheter was placed without any complications. The abdomen was prepped and draped in the usual sterile fashion. A midline laparotomy was carried out using a 10 blade. Electrocautery was used to dissected down to the fascial layer. The abdomen was entered using sharp scissors in the epigastrium. The peritoneal cavity was entered and dense adhesions were immediately visualized. Sharp adhesiolysis was carried out in the right upper quadrant. The liver was then visualized. Underneath the liver I identified the stomach. The stomach had a 1 cm perforation prepyloric on the anterior wall. I inspected the rest of the stomach and it appeared intact. I washed out the abdomen with 2 L normal saline. I considered performing additional dissection in order to inspect the duodenum as well as the rest of the small bowel and colon however there were thick adhesions throughout the abdomen and a lot of colon and small bowel adhered to the anterior abdominal wall. I weighed the risk and benefits and I decided against this given the high risk of iatrogenic enterotomies. At this point I elected to proceed with a Conrado patch repair using a piece of omentum which was used as a patch on the stomach and was secured using 2 interrupted 2-0 Vicryl and 2-0 interrupted 3-0 silk. A left a [address] [place] drain in the right upper quadrant was secured with 3-0 nylon. I was satisfied with the repair of the gastric perforation and proceeded to close the abdomen. Fascia was closed using looped 0 PDS. Skin was closed with surgical mihir. A tap block was carried out using a combination of 1% lidocaine and 0.5% bupivacaine with epinephrine. The patient woke up from anesthesia without any complications. At the end of the case the drain was serosanguineous.
[2025-05-01] MEDS: BUPivacaine 0.25% INJ 30 mL INJECTION (01:55)
[2025-05-01] MEDS: lidocaine-epi 1% 20 mL INJ 40 ML INJECTION (01:55)
--- NOTE | 2025-05-01 02:30 | ANE.PACU2 ---
Inpatient post-anesthesia follow up: Airway intact: Yes Vital signs: Temperature 96.6 F Pulse Rate 97 Respiratory Rate 16 Blood Pressure 108/65 Pulse Oximetry 95 Oxygen Delivery Me thod Room Air Oxygen Flow Rate 2 Fraction of Inspir ed Oxygen Hydration adequate: Yes Nausea and vomiting: No Pain level: 4 Mental status: Baseline
--- NOTE | 2025-05-01 02:34 | XRR_ITS ---
PROCEDURE INFORMATION: Exam: XR Chest Exam date and time: 05/01/2025 2:46 AM Age: 55 years old Clinical indication: Device placement; Ng tube; Prior surgery; Surgery date: Post-operative (0-2 days); Surgery type: Conrado patch repair of gastric perforation this a. M. Gb. Splenectomy. Check S/P ng placement. Patient just post op from conrado patch repair of gastric perforation. [place] drains in place. ; Additional info: Confirm ng tube placement TECHNIQUE: Imaging protocol: Radiologic exam of the chest. Views: 1 view. COMPARISON: CR XR chest 1V portable [id number] 08/26/2024 9:32 PM FINDINGS: Tubes, catheters and devices: Gastric tube terminus projects at the expected area of the stomach. Recent postsurgical changes of the upper abdomen with probable surgical drain at the left upper quadrant. Lungs: No large focal consolidation. Pleural spaces: No large pleural effusion. No distinct pneumothorax. Heart/Mediastinum: Cardiomediastinal silhouette is midline and normal in size. Bones/joints: No distinct acute osseous findings. XR/XR chest 1V portable [id number] IMPRESSION: Gastric tube terminus projects at the expected area of the stomach.
[2025-05-01] MEDS: fluconazole premix 400 MG/200 ML PIGGYBACK 100 MG IV (02:52)
[2025-05-01] MEDS: acetaminophen 1,000 MG/100 ML PIGGYBACK 400 MG IV ×2 (03:00→10:51)
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
--- NOTE | 2025-05-01 03:09 | PC.NURSE ---
Patient arrived on unit from OR at 0215, upon arrival to unit patient is confused and agitated and unable to answer to admission questions.
--- NOTE | 2025-05-01 04:14 | PC.NURSE ---
Patient stating he is going to remove NG tube himself, this RN educated patient on importance of having the NG tube, physician notified.
--- NOTE | 2025-05-01 04:18 | P.CONIM_ITS ---
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 Further investigation in the ER revealed free air under diaphragm with high suspicious of gastric/duodenal perforation. Patient underwent urgent surgery and is s/p repair of gastric perforation with Conrado patch. He is in ICU on NGT suction at room air. Internal medicine/hospitalist consulted for further optimization of care in ICU along with surgery Review of Systems 2 General: Reports: 10 or more systems reviewed and unremarkable except in HPI and below Medications/Allergies Home Medications ?Medication ?Instructions ?Recorded ?Confirmed ?Last Taken ?Type methocarbamol 750 mg tablet 750 mg PO Q8H PRN muscle s pasm #30 04/14/25 04/26/25 04/26/25 Rx tabs amoxicillin 500 mg capsule 500 mg PO BID #20 caps 03/2404/26/25 04/26/25 Rx naproxen 375 mg tablet 375 mg PO BID PRN pain #60 t abs 04/20/25 04/26/25 04/26/25 Rx hydrocodone 5 mg-acetaminophen 325 1 tab PO Q6H PRN pa in #30 tabs 04/27/25 Unknown Rx mg tablet Allergies Allergy/AdvReac Type Severity Reaction Status Date / Time adhesive Allergy ALGY-Rash Verified 04/26/25 14:08 Latex, Natural Rubber Allergy ALGY-Rash Verified 04/26/25 14:08 Current Medications Generic Name Dose Route Start Last Admin Trade Name Freq PRN Reason Stop Dose Admin Sodium Chloride 1,000 mls @ 150 mls/hr 04/30/25 23:00 04/30/25 23:18 Sodium Chloride 0.9% IV 150 mls/hr .Q6H40M RAVI Administration Acetaminophen 1,000 mg in 100 mls @ 400 mls/hr 05/01/25 02:28 05/01/25 03:28 Acetaminophen IV 05/01/25 18:42 Infused Q8H RAVI Infusion PFSH Acute 2 PFSH: Surgical History Hx of splenectomy History of hernia repair Hx laparoscopic cholecystectomy Hx of brain surgery Social History Smoking and tobacco/nicotine status: current every day tobacco/nicotine user Vitals/I&O/Wt Last Vital Signs Temp 97.8 F 04/30/25 19:37 Pulse 92 05/01/25 03:40 Resp 21 H 04/30/25 23:34 BP 115/62 05/01/25 03:40 Pulse Ox 96 05/01/25 03:40 O2 Del Method Nasal Cannula 05/01/25 03:35 O2 Flow Rate 2 05/01/25 03:35 04/30/25 04/30/25 05/01/25 14:59 22:59 06:59 Intake Total 0 / 0 150 / 150 Output Total 80 / 80 Balance 0 / 0 70 / 70 Weight last 48 hrs Weight 69.4 kg Weight 69.5 kg Physical Exam 2 Narrative: General: Alert and oriented, on NGT suction at room air able to speak in full sentences however having mild to moderate distress due to abdominal pain and having dry mouth HEENT: Normocephalic, atraumatic, grossly unremarkable exam Cardio: normal rate rhythm, normal S1-S2 without any murmurs. Respiratory: normal vascular breathing on auscultation without any wheezes, exam is limited since patient has poor inspiratory effort GI: Abdomen soft, cannot perform deep palpation since patient has postsurgery dressing. Neuro: Grossly intact Behavior: Appropriate and cooperative Extremities: Adequate palpable pulses, no edema or cyanosis observed, adequate capillary refill. Urinary Catheter Management: Tyler Latex Free: Cath Placed During This Visit: yes Urinary Catheter Date of Insertion: 05/01/25 Urinary Catheter Time of Insertion: 00:42 Data 05/01/25 04:28 05/01/25 04:28 A&P Assessment and plan 1. Perforated viscus: Patient s/p surgery and repair of gastric perforation by Conrado graft Adequate analgesia to be provided, patient can have oxycodone through oral and can be given Dilaudid or morphine as IV. Avoid any NSAIDs like ketorolac, Toradol Patient can have some sips just to wet his oral cavity and not to drink much until cleared by the surgery Adequate hydration to continue NGT at suction Monitor intake output monitoring Continue monitoring hemodynamics and maintain MAP above 65 Continue cardiac monitoring 2. Post-operative pain: As mentioned above PDMP PDMP Reviewed: Not Reviewed Consult Attestations 2 Medical Necessity Statement: Patient will stay overnight as per discretion of the primary surgery team for further management s/p surgery of perforated gastric ulcer Time Spent in Patient Care: 16 - 35 minutes (>than 50% of time sp ent in counselling and/or direct pt care on unit) . Other Attestations: Other Attestations: Patient condition has been discussed at length with the patient/family, I have independently reviewed the chart labs imaging/diagnostics/EKG. the goals of care and code status with the patient/family/NOK/legal premium service representative, and documented accordingly. The management has been done according to the current clinical condition with respect to patient goals of care and based on recommendations/guidelines. The patient/family has been informed about the current condition and further plan of care. Agreed with the plan of care and understood without any language barrier. Every effort was made to ensure accuracy of revenue cycle analyst. Any obvious errors or omissions should be clarified with the author of the document. Coding Level of Care Code Acute Code for Chg Fwd Diagnoses Perforated viscus R19.8 Post-operative pain G89.18
[2025-05-01] MEDS: HYDROmorphone 0.5 MG/0.5 ML INJ 0.2 MG IVP (04:20)
--- NOTE | 2025-05-01 04:34 | PC.NURSE ---
Patient now alert and oriented Patient stating he is going to remove NG tube himself, this RN educated patient on importance of having the NG tube. NG tube still in place at this time, physician notified.
[2025-05-01] MEDS: oxyCODONE 5 mg IR Tab/Cap PO ×2 (05:09→08:39)
[2025-05-01 05:13] LABS: Hematocrit 28.6 % (37-53); Hemoglobin 8.40 g/dL (11.27-16.99); Mean Corpuscular HGB Conc 29.4 g/dL (30-55); Mean Corpuscular Hemoglobin 20.2 pg (27-33); Mean Corpuscular Volume 68.9 fl (82-101); Nucleated Red Blood Cells % 0.1 %; Platelet Count 568 10^3/cmm (157-399); Red Blood Count 4.15 10^6/uL (3.85-5.65)
[2025-05-01 05:42] LABS: Alanine Aminotransferase 18 U/L (0-41); Albumin Level 3.5 g/dL (3.5-5.2); Alkaline Phosphatase 94 U/L (40-130); Anion Gap 15.4 (5-19); Aspartate Amino Transferase 35 U/L (0-40); Blood Urea Nitrogen 15 mg/dL (6-20); Calcium 7.9 mg/dL (8.5-10.5); Carbon Dioxide 18 mmol/L (22-29); Chloride 108 mmol/L (98-107); Creatinine Clr Calc Pharmacy 101.8323; Globulin 2.1 g/dL (1.3-4.6); Glucose 100 mg/dL (65-115); Osmolality Calculated 285 mOsm/kg (285-295); Potassium 4.4 mmol/L (3.5-5.1); Sodium 137 mmol/L (136-145); Total Protein 5.6 g/dL (6.6-8.7)
[2025-05-01 06:00] LABS: White Blood Count 34.63 10^3/uL (3.29-11.43)
[2025-05-01] MEDS: piperacillin-tazobactam 3.375 GM in sodium chloride 0.9% (plus) 50 ML IV (06:02)
[2025-05-01] MEDS: morphine 4 mg/mL SDV 1 mL 2 MG IVP (07:22)
[2025-05-01 08:58] LABS: Procalcitonin 0.45 ng/mL (0-0.5); Thyroid Stimulating Hormone 0.65 uIU/mL (0.27-4.20); Vitamin B12 434 pg/mL (232-1245)
[2025-05-01 09:09] LABS: Iron 15 ug/dL (59-158); Total Iron Binding Capacity 339 mcg/dl; Unsaturated Iron Binding 324 ug/dL (112-347)
[2025-05-01 09:10] LABS: Estmated Average Glucose 105; Hemoglobin A1C 5.3 % (4.0-6.0)
--- NOTE | 2025-05-01 09:15 | PC.NURSE ---
Attempted to call Dr. Alan due to increased dark green drainage within GAYLE drain.
--- NOTE | 2025-05-01 09:21 | PC.NURSE ---
Dr. Alan called unit back. Notified of dark green drainage from GAYLE drain. Ordered for NG to continuous Low suction.
[2025-05-01 10:05] LABS: MRSA PCR OZH (swab) NOT DETECTED (Negative)
[2025-05-01 10:49] LABS: Hematocrit 29.9 % (37-53); Hemoglobin 8.50 g/dL (11.27-16.99)
--- NOTE | 2025-05-01 11:01 | PM.MISC ---
Miscellaneous Note Note: Conrado patch leaking. Drain with bilious output. Hemodynamically stable. Will need distal gastrectomy and possible Billroth 1 reconstruction. Given frozen abdomen and surgical complexity transferring to [place]. Dr. Gallegos accepted patient.
--- NOTE | 2025-05-01 11:05 | P.TS_ITS ---
Transfer Summary Providers Date of Admission: 05/01/25 02:19 Date of Discharge/Transfer: 05/01/25 Attending Provider at Admission: Joni Pierre MD Attending Provider at Transfer: Joni Pierre MD Primary Care Provider: MONIQUE Zavaleta Transfer Plans: Anticipated date of transfer: 05/01/25 . Diagnoses at Discharge Discharge Diagnosis 1. Perforated viscus: 2. Post-operative pain: Reason for Visit Reason for Visit ABD PAIN Hospital Course Hospital Course 55yo male PMH PUD, NSAID user, smoker, PSH trauma laparotomy, splenectomy, left nephrectomy who presented with a 1 cm prepyloric gastric ulcer. Underwent exploratory laparotomy with Conrado patch repair of gastric perforation and drain placement. This morning the drain turned bilious. Given frozen abdomen as well as surgical complexity will be transferred to [place] for possible distal gastrectomy with Billroth 1 reconstruction. Surgeon in [facility] has accepted patient. Physical Exam Narrative: NG tube to low continuous suction Chest: Unlabored breathing room air. Heart: Regular rate and rhythm. No pressors. Abdomen: Soft, diffusely tender, mildly distended, incision clean dry intact, drain output bilious. Urinary Catheter Management: Tyler Latex Free: Cath Placed During This Visit: yes Reason for Continuing Indwelling Catheter: Accurate Measurement of Urinary Output in Critically Ill Patients Urinary Catheter Date of Insertion: 05/01/25 Urinary Catheter Time of Insertion: 00:42 TS Data Studies Completed and Pending Pending at discharge Category Date Time Status Body Fluid Culture & GS Routine Lab 05/01/25 01:03 Received Complete Blood Count w/Auto AM LABS Lab 05/02/25 04:00 Ordered Comprehensive Metabolic Panel AM LABS Lab 05/02/25 04:00 Ordered Folate Level AM LABS Lab 05/02/25 04:00 Ordered MAG [Magnesium] AM LABS Lab 05/02/25 04:00 Ordered MAG [Magnesium] AM LABS Lab 05/03/25 04:00 Ordered MAG [Magnesium] AM LABS Lab 05/04/25 04:00 Ordered Type and Screen Routine Lab 05/01/25 10:40 Received Completed Studies During Hospitalization Category Date Time Status CT abdomen pelvis wo con [id number] Stat Cat Scan 04/30/25 20:00 Completed XR chest 1V portable [id number] Routine Exams 05/01/25 02:34 Completed Laboratory Last Values WBC 34.63 10^3/uL (3.29-11.43) H* 05/01/25 04:28 RBC 4.15 10^6/uL (3.85-5.65) 05/01/25 04:28 Hgb 8.50 g/dL (11.27-16.99) L 05/01/25 10:40 Hct 29.9 % (37-53) L 05/01/25 10:40 MCV 68.9 fl (82-101) L 05/01/25 04:28 MCH 20.2 pg (27-33) L 05/01/25 04:28 MCHC 29.4 g/dL (30-55) L 05/01/25 04:28 RDW 19.3 % (12.1-15.1) H 05/01/25 04:28 Plt Count 568 10^3/cmm (157-399) H 05/01/25 04:28 MPV 9.6 fL (7.4-10.4) 05/01/25 04:28 Neut % (Auto) 79.4 % 05/01/25 04:28 Lymph % (Auto) 5.1 % 05/01/25 04:28 Pettis % (Auto) 14.5 % 05/01/25 04:28 Eos % (Auto) 0.0 % 05/01/25 04:28 Baso % (Auto) 0.2 % 05/01/25 04:28 Neut # (Auto) 27.47 10^3/uL (1.8-7.7) H 05/01/25 04:28 Lymph # (Auto) 1.8 10^3/uL (0.8-4.8) 05/01/25 04:28 Pettis # (Auto) 5.0 10^3/uL (0.2-0.9) H 05/01/25 04:28 Eos # (Auto) 0.0 10^3/uL (0.0-0.8) 05/01/25 04:28 Baso # (Auto) 0.1 10^3/uL (0.0-0.1) 05/01/25 04:28 Nucleated RBC % (auto) 0.1 % 05/01/25 04:28 Nucleated RBCs # 0.0 /100WBC 05/01/25 04:28 Sodium 137 mmol/L (136-145) 05/01/25 04:28 Potassium 4.4 mmol/L (3.5-5.1) 05/01/25 04:28 Chloride 108 mmol/L (98-107) H 05/01/25 04:28 Carbon Dioxide 18 mmol/L (22-29) L 05/01/25 04:28 Anion Gap 15.4 (5-19) 05/01/25 04:28 BUN 15 mg/dL (6-20) 05/01/25 04:28 Creatinine 0.8 mg/dL (0.7-1.2) 05/01/25 04:28 GFR Calculation 101.1 mL/min (90-130) 05/01/25 04:28 Glucose 100 mg/dL (65-115) 05/01/25 04:28 Estimat Average Glucose 105 05/01/25 04:28 Hemoglobin A1c 5.3 % (4.0-6.0) 05/01/25 04:28 Calculated Osmolality 285 mOsm/kg (285-295) 05/01/25 04:28 Calcium 7.9 mg/dL (8.5-10.5) L 05/01/25 04:28 Iron 15 ug/dL (59-158) L 05/01/25 04:28 TIBC 339 mcg/dl 05/01/25 04:28 % Saturation 4.4 % (20-50) L 05/01/25 04:28 Unsat Iron Binding 324 ug/dL (112-347) 05/01/25 04:28 Total Bilirubin 0.8 mg/dL (0.15-1.2) 05/01/25 04:28 AST 35 U/L (0-40) 05/01/25 04:28 ALT 18 U/L (0-41) 05/01/25 04:28 Alkaline Phosphatase 94 U/L (40-130) 05/01/25 04:28 C-Reactive Protein 17.7 mg/L (0.0-4.9) H 04/30/25 22:38 Total Protein 5.6 g/dL (6.6-8.7) L 05/01/25 04:28 Albumin 3.5 g/dL (3.5-5.2) 05/01/25 04:28 Globulin 2.1 g/dL (1.3-4.6) 05/01/25 04:28 Lipase 28 U/L (13-60) 04/30/25 22:38 Vitamin B12 434 pg/mL (232-1245) 05/01/25 04:28 Procalcitonin 0.45 ng/mL (0-0.5) 05/01/25 04:28 TSH 0.65 uIU/mL (0.27-4.20) 05/01/25 04:28 Urine Color Yellow (Yellow) 04/30/25 20:09 Urine Appearance Clear (CLEAR) 04/30/25 20:09 Urine pH 7.0 (5-7) 04/30/25 20:09 Ur Specific [place] 1.015 (1.005-1.030) 04/30/25 20:09 Urine Protein 1+ (Negative) A 04/30/25 20:09 Urine Glucose (UA) Negative (Normal) 04/30/25 20:09 Urine Ketones Trace (Negative) 04/30/25 20:09 Urine Blood Negative (Negative) 04/30/25 20:09 Urine Nitrate Negative (Negative) 04/30/25 20:09 Urine Bilirubin Negative (Negative) 04/30/25 20:09 Urine Urobilinogen 1.0 mg/dL (Negative) 04/30/25 20:09 Ur Leukocyte Esterase Negative (Negative) 04/30/25 20:09 Urine RBC 0-2 /hpf (0-2) 04/30/25 20:09 Urine WBC 0-5 /hpf (0-5) 04/30/25 20:09 Ur Squamous Epith Cells 0-5 /hpf (0-5) 04/30/25 20:09 Amorphous Sediment Not Reportable 04/30/25 20:09 Urine Bacteria None seen /hpf (NONE) 04/30/25 20:09 Hyaline Casts 2.05 /lpf 04/30/25 20:09 Nasal MRSA (PCR) Not detected (Negative) 05/01/25 08:45 Urine Opiates Screen Positive ng/mL (Negative) H 04/30/25 20:09 Ur Barbiturates Screen Negative ng/mL (Negative) 04/30/25 20:09 Ur Phencyclidine Scrn Negative ng/mL (Negative) 04/30/25 20:09 Ur Amphetamines Screen Negative ng/mL (Negative) 04/30/25 20:09 U Benzodiazepines Scrn Negative ng/mL (Negative) 04/30/25 20:09 Urine Cocaine Screen Negative ng/mL (Negative) 04/30/25 20:09 U Marijuana (THC) Screen Negative ng/mL (Negative) 04/30/25 20:09 Radiology Impressions Abdomen/Pelvis CT 04/30/25 20:00 IMPRESSION: Free intraperitoneal air. Exact etiology of free air on this exam is limited. However there are findings suspicious possible perforated distal gastric/duodenal ulcer given the stranding noted about the distal stomach and proximal duodenum. Moderate amount of free fluid in the left upper quadrant. ADDENDUM: 04/30/25 [id number] THIS REPORT CONTAINS FINDINGS THAT MAY BE CRITICAL TO PATIENT CARE. The findings were verbally communicated via telephone conference with Dr. Valentin 945 p.m. GLOVE [employer] on 04/30/2025. The findings were acknowledged and understood. Chest X-Ray 05/01/25 02:34 IMPRESSION: Gastric tube terminus projects at the expected area of the stomach. Recent Clincial Data Last Vital Signs Temp 96.6 F L 05/01/25 10:04 Pulse 87 05/01/25 09:00 Resp 16 05/01/25 09:00 BP 95/62 05/01/25 09:00 Pulse Ox 98 05/01/25 09:00 O2 Del Method Room Air 05/01/25 09:00 O2 Flow Rate 2 05/01/25 03:35 Vital Signs Temp Pulse Resp BP Pulse Ox O2 Del Method O2 Flow Rate 05/01/25 10:04 96.6 F L 05/01/25 09:00 87 16 95/62 98 Room Air 05/01/25 08:39 16 97 05/01/25 08:30 83 16 113/68 96 Room Air 05/01/25 08:00 81 16 109/63 97 Room Air 05/01/25 07:30 86 16 100/67 94 Room Air 05/01/25 07:22 16 95 05/01/25 07:00 85 16 107/61 96 Room Air 05/01/25 06:30 88 16 115/69 93 Room Air 05/01/25 06:10 98.5 F 90 108/73 94 05/01/25 06:05 89 108/73 94 05/01/25 06:00 90 108/73 94 05/01/25 05:55 90 108/75 93 05/01/25 05:50 93 108/75 94 05/01/25 05:45 94 108/75 94 05/01/25 05:40 93 123/73 94 05/01/25 05:35 92 123/73 93 05/01/25 05:30 93 123/73 93 05/01/25 05:26 84 05/01/25 05:25 88 117/68 95 05/01/25 05:20 84 117/68 94 05/01/25 05:15 88 117/68 96 Room Air 05/01/25 05:10 86 119/66 97 05/01/25 05:05 85 119/66 94 05/01/25 05:00 86 119/66 94 05/01/25 04:55 87 105/66 93 05/01/25 04:50 89 105/66 92 05/01/25 04:45 90 105/66 93 05/01/25 04:40 90 118/66 93 05/01/25 04:35 89 118/66 90 05/01/25 04:30 88 118/66 95 05/01/25 04:25 90 117/67 94 05/01/25 04:20 85 117/67 94 05/01/25 04:15 88 117/67 93 05/01/25 04:10 90 124/67 94 05/01/25 04:05 87 124/67 94 05/01/25 04:00 90 124/67 94 05/01/25 03:55 88 114/70 95 05/01/25 03:50 89 114/70 96 05/01/25 03:45 92 114/70 96 05/01/25 03:40 92 115/62 96 05/01/25 03:37 92 05/01/25 03:35 88 115/62 96 Nasal Cannula 2 05/01/25 03:30 88 115/62 94 05/01/25 03:25 91 92/63 96 05/01/25 03:20 92 92/63 95 05/01/25 03:15 93 92/63 95 05/01/25 03:10 93 106/68 95 05/01/25 03:05 94 106/68 94 05/01/25 03:00 96 106/68 95 05/01/25 02:55 99 113/60 97 05/01/25 02:50 92 113/60 95 05/01/25 02:45 93 113/60 97 05/01/25 02:40 91 102/75 96 05/01/25 02:35 98 102/75 96 05/01/25 02:30 93 102/75 97 05/01/25 02:29 Nasal Cannula 05/01/25 02:25 98 119/70 97 05/01/25 02:20 93 119/70 99 05/01/25 02:19 94 119/70 05/01/25 02:15 95 04/30/25 23:34 88 21 H 146/92 98 Nasal Cannula 2 04/30/25 23:33 21 H 96 04/30/25 23:25 87 18 144/100 94 Room Air Intake & Output/Weight 04/29/25 04/30/25 05/01/25 05/02/25 06:59 06:59 06:59 06:59 Intake Total 950 / 950 535 / 535 Output Total 545 / 545 195 / 195 Balance 405 / 405 340 / 340 Weight 153 lb Vitals Last Vital Signs Temp 96.6 F L 05/01/25 10:04 Pulse 87 05/01/25 09:00 Resp 16 05/01/25 09:00 BP 95/62 05/01/25 09:00 Pulse Ox 98 05/01/25 09:00 O2 Del Method Room Air 05/01/25 09:00 O2 Flow Rate 2 05/01/25 03:35 TS Medications Medications Hydromorphone HCl (Hydromorphone 0.5 Mg/0.5 Ml Inj) 0.4 mg IVP Q4H PRN PRN Reason: PAIN Sodium Chloride (Sodium Chloride 0.9%) 1,000 mls @ 100 mls/hr IV .Q10H RAVI Last Infusion: 05/01/25 08:27 Dose: 100 mls/hr Acetaminophen (Acetaminophen) 1,000 mg in 100 mls @ 400 mls/hr IV Q8H RAVI Stop: 05/01/25 18:42 Last Admin: 05/01/25 10:51 Dose: 400 mls/hr Piperacillin Sod/Tazobactam (Sod 3.375 gm/ Sodium Chloride) 50 mls @ 12.5 mls/hr IV Q8H RAVI; Protocol Last Infusion: 05/01/25 10:46 Dose: Infused Fluconazole 100 mg/ N/A 50 mls @ 50 mls/hr IV Q24H RAVI Vancomycin HCl (Vancocin) 2,000 mg in 400 mls @ 200 mls/hr IV ONCE ONE Stop: 05/01/25 11:29 Last Admin: 05/01/25 09:53 Dose: 200 mls/hr Vancomycin HCl (Vancocin) 1,500 mg in 300 mls @ 200 mls/hr IV Q12H RAVI Oxycodone HCl (Oxycodone 5 Mg Ir Tab/Cap) 5 mg PO Q4H PRN PRN Reason: MODERATE TO SEVERE PAIN Last Admin: 05/01/25 08:39 Dose: 5 mg Discontinued Medications Bupivacaine HCl (Bupivacaine 0.25% Inj 30 Ml) Confirm Administered Dose 30 ml .ROUTE .STK-MED ONE Stop: 05/01/25 01:29 Bupivacaine HCl (Bupivacaine 0.25% Inj 30 Ml) 30 ml INJECTION ONCE ONE Stop: 05/01/25 02:30 Last Admin: 05/01/25 01:55 Dose: 20 ml Ephedrine Sulfate (Ephedrine 50 Mg/Ml Inj) Confirm Administered Dose 50 mg .ROUTE .STK-MED ONE Stop: 05/01/25 00:50 Fentanyl (Fentanyl 50 Mcg/Ml Inj 2ml) Confirm Administered Dose 100 mcg .ROUTE .STK-MED ONE Stop: 04/30/25 23:56 Hydromorphone HCl (Hydromorphone 0.5 Mg/0.5 Ml Inj) 0.2 mg IVP Q6H PRN PRN Reason: PAIN Last Admin: 05/01/25 04:20 Dose: 0.2 mg Hydromorphone HCl (Hydromorphone 0.5 Mg/0.5 Ml Inj) 0.4 mg IVP Q6H PRN PRN Reason: PAIN Piperacillin Sod/Tazobactam (Sod 3.375 gm/ Sodium Chloride) 50 mls @ 100 mls/hr IV ONCE ONE; Protocol Stop: 04/30/25 23:00 Last Infusion: 05/01/25 00:08 Dose: Infused Metronidazole (Flagyl Iv) 500 mg in 100 mls @ 100 mls/hr IV ARTIFICIAL INSEMINATOR ONE Stop: 05/01/25 01:53 Last Admin: 05/01/25 01:17 Dose: Not Given Fluconazole (Diflucan Premix) 400 mg in 200 mls @ 100 mls/hr IV ONCE ONE Stop: 05/01/25 03:12 Last Infusion: 05/01/25 05:04 Dose: Infused Ketamine HCl (Ketamine 50 Mg/Ml Syr 1 Ml) Confirm Administered Dose 50 mg .ROUTE .STK-MED ONE Stop: 05/01/25 00:05 Lidocaine HCl (Lidocaine 2% Inj 20 Ml) Confirm Administered Dose 20 ml .ROUTE .STK-MED ONE Stop: 05/01/25 01:52 Lidocaine/Epinephrine (Lidocaine-Epi 1% 20 Ml Inj) Confirm Administered Dose 40 ml .ROUTE .STK-MED ONE Stop: 05/01/25 01:29 Lidocaine/Epinephrine (Lidocaine-Epi 1% 20 Ml Inj) 40 ml INJECTION ONCE ONE Stop: 05/01/25 02:29 Last Admin: 05/01/25 01:55 Dose: 20 ml Midazolam HCl (Midazolam 1 Mg/Ml Inj 2 Ml) Confirm Administered Dose 2 mg .ROUTE .STK-MED ONE Stop: 04/30/25 23:56 Morphine Sulfate (Morphine 4 Mg/Ml Sdv 1 Ml) 4 mg IVP ONCE ONE Stop: 04/30/25 20:01 Last Admin: 04/30/25 21:12 Dose: 4 mg Morphine Sulfate (Morphine 4 Mg/Ml Sdv 1 Ml) 4 mg IVP ONCE ONE Stop: 04/30/25 23:24 Last Admin: 04/30/25 23:33 Dose: 4 mg Morphine Sulfate (Morphine 4 Mg/Ml Sdv 1 Ml) 2 mg IVP Q4H PRN PRN Reason: SEVERE PAIN Last Admin: 05/01/25 07:22 Dose: 2 mg Ondansetron HCl (Ondansetron 2 Mg/Ml Sdv 2 Ml) 4 mg IVP ONCE ONE Stop: 04/30/25 20:01 Last Admin: 04/30/25 21:12 Dose: 4 mg Ondansetron HCl (Ondansetron 2 Mg/Ml Sdv 2 Ml) 4 mg IVP ONCE ONE Stop: 04/30/25 23:24 Last Admin: 04/30/25 23:33 Dose: 4 mg Oxycodone HCl (Oxycodone 5 Mg Ir Tab/Cap) 10 mg PO Q4H PRN PRN Reason: SEVERE PAIN Pantoprazole Sodium (Pantoprazole 40 Mg Sdv) 80 mg IVP ONCE ONE Stop: 04/30/25 22:32 Last Admin: 04/30/25 22:49 Dose: 80 mg Phenylephrine HCl (Phenylephrine 10 Mg/Ml Sdv 1 Ml) Confirm Administered Dose 10 mg .ROUTE .STK-MED ONE Stop: 05/01/25 01:52 Propofol (Propofol 10 Mg/Ml Sdv 20 Ml) Confirm Administered Dose 200 mg .ROUTE .STK-MED ONE Stop: 04/30/25 23:56 Rocuronium [place] (Rocuronium 10 Mg/Ml Inj 5ml) Confirm Administered Dose 50 mg .ROUTE .STK-MED ONE Stop: 05/01/25 01:52 Succinylcholine Chloride (Succinylcholine 20 Mg/Ml Sdv 10ml) Confirm Administered Dose 200 mg .ROUTE .STK-MED ONE Stop: 05/01/25 01:52 Sugammadex Sodium (Sugammadex 200 Mg/2 Ml Sdv) Confirm Administered Dose 200 mg .ROUTE .STK-MED ONE Stop: 05/01/25 01:35 Vasopressin (Vasopressin 20 Unit/Ml Inj) Confirm Administered Dose 20 unit .ROUTE .STK-MED ONE Stop: 05/01/25 00:51 Allergies adhesive Allergy (Verified 04/26/25 14:08) ALGY-Rash Latex, Natural Rubber Allergy (Verified 04/26/25 14:08) ALGY-Rash Home Medications methocarbamol 750 mg tablet 750 mg PO Q8H PRN muscle spasm #30 tabs 04/14/25 [Rx Confirmed 05/01/25] amoxicillin 500 mg capsule 500 mg PO BID #20 caps 04/20/25 [Rx Confirmed 05/01/25] naproxen 375 mg tablet 375 mg PO BID PRN pain #60 tabs 04/20/25 [Rx Confirmed 05/01/25] hydrocodone 5 mg-acetaminophen 325 mg tablet 1 tab PO Q6H PRN pain #30 tabs 04/27/25 [Rx Confirmed 05/01/25] naloxone 4 mg/actuation nasal spray (Narcan) See Rx Instructions .Route .COMPLEX 05/01/25 [History Confirmed 05/01/25] Discharge Plan Discharge Patient Disposition: Home Condition: Stable Prescriptions: No Action amoxicillin 500 mg capsule 500 mg PO BID Qty: 20 0RF naproxen 375 mg tablet 375 mg PO BID PRN (Reason: pain) Qty: 60 0RF naloxone [Narcan] 4 mg/actuation spray,non-aerosol See Rx Instructions .ROUTE .COMPLEX Rx Instructions: call 911. administer a single spray of narcan in one nostril. repeat every 2-3 minutes as needed if no or minimal response; Refer questions about refills only to the pharmacist who fulfilled this [place] state standing order at [phone] methocarbamol 750 mg tablet 750 mg PO Q8H PRN (Reason: muscle spasm) Qty: 30 0RF hydrocodone-acetaminophen 5-325 mg tablet 1 tab PO Q6H PRN (Reason: pain) Qty: 30 0RF Patient Instructions: Acute Wound Care (DC), Opioid Safety, Post Anesthesia Care, Patient Portal & Felisha Instructions Transfer Attestations Time Spent in Transfer Care: greater than 30 min Quality Metrics Clinical Quality Measures [ No reported AMI, CVA or VTE this stay] Coding Level of Care Code Acute Code for Chg Fwd Diagnoses Perforated viscus R19.8 Post-operative pain G89.18
--- NOTE | 2025-05-01 11:05 | PM.PN ---
Subjective Subjective: Drain turned bilious this morning Hemodynamically stable Abdomen diffusely tender, not peritonitic White count up to 34,000 Vitals/I&O/Wt Last Vital Signs Temp 96.6 F L 05/01/25 10:04 Pulse 87 05/01/25 09:00 Resp 16 05/01/25 09:00 BP 95/62 05/01/25 09:00 Pulse Ox 98 05/01/25 09:00 O2 Del Method Room Air 05/01/25 09:00 O2 Flow Rate 2 05/01/25 03:35 04/30/25 05/01/25 05/01/25 22:59 06:59 14:59 Intake Total 0 / 0 950 / 950 535 / 535 Output Total 545 / 545 195 / 195 Balance 0 / 0 405 / 405 340 / 340 Weight last 48 hrs Weight 153 lb Weight 153 lb Weight 153 lb 3.54 oz Physical Exam Narrative: Chest: Unlabored breathing room air. No lymphadenopathy. Heart: Regular rate and rhythm. Abdomen: Soft, nontender, nondistended. No masses or lymphadenopathy. Urinary Catheter Management: Tyler Latex Free: Cath Placed During This Visit: yes Reason for Continuing Indwelling Catheter: Accurate Measurement of Urinary Output in Critically Ill Patients Urinary Catheter Date of Insertion: 05/01/25 Urinary Catheter Time of Insertion: 00:42 Data 05/01/25 10:40 05/01/25 04:28 A&P Assessment and plan 1. Perforated viscus: 2. Gastric ulcer with perforation: Plan: 55-year-old male with multiple abdominal surgeries and history of peptic ulcer disease who presented with a 1 cm gastric ulcer perforation. Underwent exploratory laparotomy and modified Conrado patch repair. Today the drain turned bilious. Given the surgical complexity as well as the high risk of perioperative complications will transfer patient to [place]. To surgeon who has accepted the patient. Had an extensive discussion with the patient and the niece who was at bedside. Answered all their questions. They agree with this plan. They understand that he is at very high risk of perioperative complications including . They understand he will need 1 or more invasive surgeries may include partial gastrectomy with reconstruction. I have also explained the risks of transfer via ground since he is stable at this time. They have decided to proceed with transfer via ground and have no questions. PDMP PDMP Reviewed: Not Reviewed Attestations Medical Necessity Statement*: Gastric perforation Coding Level of Care Code 27556 Diagnoses Perforated viscus R19.8 Gastric ulcer with perforation K25.5
--- NOTE | 2025-05-01 11:18 | PC.NURSE ---
Patient notified of acceptance to [facility] for further treatment.
[2025-05-01] MEDS: HYDROmorphone 0.5 MG/0.5 ML INJ 0.4 MG IVP (11:56)
--- NOTE | 2025-05-01 12:51 | PHA.VACGOAL ---
Vancomycin Goal - Goal Vancomycin Indication:: SSTI - Therapy Current therapy:: Pip/Tazo Day of therpy:: Day []of [] . Actual body weight (kg): 153 lb - Data Labs: WBC 34.63 10^3/uL (3.29-11.43) H* 05/01/25 04:28 RBC 4.15 10^6/uL (3.85-5.65) 05/01/25 04:28 Hgb 8.50 g/dL (11.27-16.99) L 05/01/25 10:40 Hct 29.9 % (37-53) L 05/01/25 10:40 MCV 68.9 fl (82-101) L 05/01/25 04:28 MCH 20.2 pg (27-33) L 05/01/25 04:28 MCHC 29.4 g/dL (30-55) L 05/01/25 04:28 RDW 19.3 % (12.1-15.1) H 05/01/25 04:28 Sodium 137 mmol/L (136-145) 05/01/25 04:28 Potassium 4.4 mmol/L (3.5-5.1) 05/01/25 04:28 Chloride 108 mmol/L (98-107) H 05/01/25 04:28 Carbon Dioxide 18 mmol/L (22-29) L 05/01/25 04:28 Anion Gap 15.4 (5-19) 05/01/25 04:28 BUN 15 mg/dL (6-20) 05/01/25 04:28 Creatinine 0.8 mg/dL (0.7-1.2) 05/01/25 04:28 GFR Calculation 101.1 mL/min (90-130) 05/01/25 04:28 Treatment plan:: new consult Regimen:: 1500 MG Q12H
--- NOTE | 2025-05-01 13:03 | PC.NURSE ---
Report called to [facility] 3B room 3179 Martha Underwood RN. No further questions. [facility]
[2025-05-01] MEDS: fentaNYL 50 mcg/mL INJ 2mL 12.5 MCG IVP (13:12)
--- NOTE | 2025-05-01 15:18 | PC.NURSE ---
[facility] Patient and belongings loaded up and transported by [facility]. No further questions.
== END 2025-05-01 13:30 | disposition short-term general hospital, planned readmission (82) ==
LOC: ER 21:11 → OR 23:10 → ICU 05-01 02:21
PROVIDERS: Student in an Organized Health Care Education/Training Program; Admitting Provider Student in an Organized Health Care Education/Training Program; Emergency Provider Emergency Medicine; PCP Nurse Practitioner; Visit Provider Student in an Organized Health Care Education/Training Program
PROC: (CPT 49000; principal; 2025-05-01 00:30)
DX: K25.5 Chronic or unspecified gastric ulcer with perforation (principal); R19.8 Other specified symptoms and signs involving the digestive system and abdomen; Z87.11 Personal history of peptic ulcer disease; Z79.891 Long term (current) use of opiate analgesic; F17.200 Nicotine dependence, unspecified, uncomplicated
CPT/HCPCS: 43840; 36415; 51702; 71045; 74176; 80053; 80306; 81001; 82607; 83036; 83540; 83550; 83690; 84145; 84443; 85014; 85018; 85025; 86140; 86850; 86900; 87070; 87075; 87205; 96365; 96367; 96375; 96376; 99291; C9250; G0378; J0131; J0330; J1171; J1450; J2250; J2270; J2371; J2405; J2470; J2543; J2704; J3010; J3372; J3490; J7030; J9999